=== PATIENT | female | born 1975 | race Caucasian/White ===

== ENCOUNTER 2017-09-25 13:53 | Inpatient (IN) | payer OTHER ==
[~2017-09-25] VITALS: Ht 162.6 cm; Wt 67.0 kg
[~2017-09-25 13:53] MED LIST: CYCL10TA PO; IBUP-232 PO; TRAM50TA PO
[2017-09-25 13:59] VITALS: PULSE 89; RESP 16; O2SAT 99
[2017-09-25] MEDS ORDERED: DIAZEPAM 5 MG TAB PO ONE (14:00)
[2017-09-25 14:16] VITALS: BP 150/73; PULSE 61; RESP 16; O2SAT 98
--- NOTE | 2017-09-25 14:31 | PD ---
HPI Chief Complaint: Numbness/Tingling Time Seen by Provider: 13:56 Travel History International Travel<30 days: No Contact w/Intl Traveler<30days: No Traveled to known affect area: No History of Present Illness HPI The patient is a 42-year-old female who presents to the emergency department for back pain. The patient states she has had ongoing back pain for one year which has progressed over the last week. The patient was seen at [facility] in [place] 1 week ago and was advised to follow-up with a neurosurgeon on an outpatient basis. However, the patient states she is unable to see a neurosurgeon and is progressing symptoms. The patient now states she had one episode of urinary incontinence at home. She also complains of pain that radiates into the right leg from the low back with right leg numbness and weakness. She does note diarrhea but denies any fecal incontinence. The patient states she had a rectal tone that was intact on her previous visit, earlier today, in [place]. The patient had a CT of the pelvis and lumbar spine at that time and was referred to [facility] for an MRI. The patient does note weakness and numbness in the right lower extremity, denies any significant weakness or numbness to left lower extremity. Symptoms are moderate. She denies any neck pain or back pain over the thoracic region. The patient does complain of low back pain located over the lower aspect of the lumbar region. She denies any history of IV drug abuse or accompanying fever, chills, or sweats. PFSH Past Medical History Anxiety: Yes Cardiovascular Problems: Yes (CARDIAC ARREST 17 MOS AND 18 YEARS OLD) Diminished Hearing: No Herniated Disk: Yes Respiratory: Yes (COPD) Immunizations Current: Yes Myocardial Infarction: Yes (17 MOS, 18 YRS OLD) Seizures: Yes (FEVER RELATED 13 YRS OLD) Tetanus Vaccination: < 5 Years Influenza Vaccination: No ?: Not Past Surgical History Abdominal Surgery: Yes (HERNIA) Appendectomy: Yes Cholecystectomy: Yes Hysterectomy: Yes Tonsillectomy: Yes Other Surgery: Yes (ACL; adnoids) Social History Alcohol Use: No Tobacco Use: Yes (1 ppd) Substance Use: Yes (marijuana ) Allergies-Medications (Allergen,Severity, Reaction): Coded Allergies: Penicillins (Verified Allergy, Severe, fever and convulsions, 09/25/17) amoxicillin (Verified Allergy, Severe, hives, 09/25/17) nitrofurantoin (Verified Allergy, Severe, hives, 09/25/17) cefaclor (Verified Allergy, Unknown, Anaphylaxis, 09/25/17) Reported Meds & Prescriptions Reported Meds & Active Scripts Active [place] (Hydrocodone-Acetaminophen) 5 Mg-325 Mg Tab 1 Tab PO Q6H PRN Medrol Dosepak (Methylprednisolone) 4 Mg Dspk 4 Mg PO DIRECTED Per Pharmacist direction Ibuprofen 600 Mg Tab 600 Mg PO Q6H PRN Review of Systems Except as stated in HPI: all other systems reviewed are Neg HENT: No: Headaches, Neck Pain Cardiovascular: No: Chest Pain or Discomfort Respiratory: No: Shortness of Breath Gastrointestinal: No: Nausea, Vomiting, Abdominal Pain Genitourinary: Positive: Incontinence Musculoskeletal: Positive: Weakness, Pain Neurologic: Positive: Incontinence, Sensory Disturbance Physical Exam Narrative GENERAL: Awake, alert, pleasant 42-year-old female who appears her stated age and is in no acute respiratory distress. SKIN: Focused skin assessment warm/dry. HEAD: Atraumatic. Normocephalic. EYES: No injection or drainage. ENT: No nasal bleeding or discharge. Mucous membranes pink and moist. NECK: Trachea midline. No JVD. CARDIOVASCULAR: Regular rate and rhythm. No murmur appreciated. RESPIRATORY: No accessory muscle use. Clear to auscultation. Breath sounds equal bilaterally. GASTROINTESTINAL: Abdomen soft, non-tender, nondistended. Back: No tenderness over the thoracic vertebrae. Mild tenderness of the lower mid lumbar and right sacroiliac. No obvious deformity. Rectal: Deferred, patient states she had positive rectal tone on previous rectal exam earlier today in [place]. MUSCULOSKELETAL: Strength of the great toes bilateral, left 5/5, right 4+/5. Plantarflexion on the left was 5/5, and the right 4+/5. Extension the knees bilaterally, left 5/5, right 4+/5. Flexion of the right hip 4/5 on the right, left 5/5. Positive dorsalis pedal pulses. NEUROLOGICAL: Awake and alert. No obvious cranial nerve deficits. Motor grossly within normal limits. Normal speech. Downward Babinski on the feet bilaterally. Knee DTRs are 2+ and symmetric. Ankle DTRs are 2+ and symmetric. Decreased sensation to soft touch the entire right lower extremity with compared to the left. PSYCHIATRIC: Appropriate mood and affect; insight and judgment normal. Data Data Last Documented VS Vital Signs Date Time Temp Pulse Resp B/P (MAP) Pulse Ox O2 Delivery O2 Flow Rate FiO2 09/25/17 16:46 70 18 99 Room Air 09/25/17 16:46 94/67 (76) Orders Orders Mri L Spine W/O Contrast (09/25/17 ) Diazepam (Valium) (09/25/17 14:00) Dexamethasone Inj (Decadron Inj) (09/25/17 16:30) Morphine Inj (Morphine Inj) (09/25/17 17:00) Complete Blood Count With Diff (09/25/17 16:55) Comprehensive Metabolic Panel (09/25/17 16:55) Type And Screen (09/25/17 16:55) Act Partial Throm Time (Ptt) (09/25/17 16:55) Prothrombin Time / Inr (Pt) (09/25/17 16:55) Electrocardiogram (09/25/17 ) MDM Medical Decision Making Medical Screen Exam Complete: Yes Emergency Medical Condition: Yes Medical Record Reviewed: Yes Interpretation(s) Last Impressions Lumbar Spine MRI 09/25/17 0000 Signed Impressions: CONCLUSION: 1. Findings are stable compared to the prior CT from 1 week ago. There is a mo derate size central disc protrusion at L4-L5 with possible annular tear. The di sc herniation effaces the lateral recesses but results in no significant spinal canal stenosis. There is mild bilateral neural foraminal narrowing. 2. Degenerative disc disease at L5-S1 without any significant canal or neural foraminal stenosis. 3. Remaining levels demonstrate no significant abnormality. Differential Diagnosis Differential diagnosis includes cauda equina syndrome, herniated disc, spinal stenosis, neuropathy, UTI, malignancy, epidural abscess. Narrative Course Patient was administered Valium 5 mg orally for anxiety and claustrophobia. MRI of the lumbar spine without contrast was ordered. I did review the patient' s CT of the pelvis, lumbar spine, and laboratory evaluation that was performed in [place], [place]. MRI reveals a herniated disc, no evidence of cauda equina. However, the patient states her leg is weak and is giving out, she is falling. Therefore, call was placed the on-call neurosurgeon. However, Dr. Emmanuel's office states the patient was supposed to have an appointment with Dr. Parrish on the , therefore, recommended we call Dr. Parrish. Therefore, Dr. Parrish was paged at 4:37 PM. The patient states they did place a mandatory referral for her, however, she never heard from the neurosurgeon, therefore, did not see a neurosurgeon in the office. The patient was administered Decadron 4 mg intravenously. I discussed the patient with the OR nurses who will bring up the MRI in the OR and Dr. Parrish will get back to us in regards to plan of care. I discussed the patient with Dr. Tabor, the patient can be admitted for surgery , most likely next week as it is an unstable disc and the patient may need a fusion of the L4-L5 area. He also stated the patient did not want to be hospitalized she could go home and follow-up outpatient with pain management. I did have a discussion with the patient, she would prefer to be admitted for possible surgical management as she has weakness of the right leg, multiple falls, and had another episode of incontinence. Therefore, the on-call medical service was paged for admission. Physician Communication [facility] Diagnosis Primary Impression: Back pain with right-sided radiculopathy Additional Impressions: Intractable back pain Urinary incontinence Qualified Codes: R32 - Unspecified urinary incontinence Admitting Information Admitting Physician Requests: Admit Patient Instructions: General Instructions Med/Other Pt SpecificInfo: Prescription(s) given Scripts Hydrocodone-Acetaminophen ([place]) 5 Mg-325 Mg Tab 1 TAB PO Q6H Y for PAIN, #12 TAB 0 Refills Prov: Man Velez MD 09/25/17 Methylprednisolone Dosepak (Medrol Dosepak) 4 Mg Dspk 4 MG PO DIRECTED, #1 DSPK 0 Refills Per Pharmacist direction Prov: Man Velez MD 09/25/17 Condition: Stable Man Velez MD Sep 25, 2017 14:31
--- NOTE | 2017-09-25 16:12 | RADRPT ---
EXAM DATE: 09/25/2017 3:57 PM EDT AGE/SEX: 42 years / Female INDICATIONS: Pain. Urinary incontinence, right leg weakness possible cauda equina. CLINICAL DATA: This is the patient's initial encounter. Patient reports that signs and symptoms have been present for 1 week and indicates a pain score of 8/10. MEDICAL/SURGICAL HISTORY: . Hernia. Hysterectomy. Tonsillectomy. COMPARISON: [facility], CT LUMBAR SPINE W/O CONTRAST, 09/18/2017. . TECHNIQUE: Multiplanar, multisequence MRI of the lumbar spine was performed without contrast. Patie nt was scanned in a sitting position; neutral, flexion, and extension scans were performed in the sa gittal plane. FINDINGS: Examination quality mildly degraded by motion artifact. The most caudal-appearing lumbar vertebra is numbered as L5. VERTEBRAE: There is mild endplate edema at the posterior superior L5 endplate. Otherwise, bone marro w signal is within normal limits. Vertebral body height is maintained. There is no anterolisthesis or retrolisthesis. CONUS: Normal level and configuration. T12-L1: No disc herniation, canal stenosis, or neural foraminal stenosis. L1-L2: No disc herniation, canal stenosis, or neural foraminal stenosis. L2-L3: No disc herniation, canal stenosis, or neural foraminal stenosis. L3-L4: No disc herniation, canal stenosis, or neural foraminal stenosis. There is mild facet hypertr ophy. L4-L5: There is disc desiccation with moderate size central disc protrusion with high T2 signal in t he herniated disc. There is mild facet hypertrophy. The lateral recesses are effaced but no spinal ca nal stenosis is present. There is mild bilateral neural foraminal stenosis. L5-S1: Disc desiccation with decreased disc height and a diffuse disc bulge. There is mild facet hyp ertrophy. No spinal canal stenosis or neural foraminal stenosis is present. Other: The visualized surrounding structures demonstrate no acute abnormality. CONCLUSION: 1. Findings are stable compared to the prior CT from 1 week ago. There is a moderate size central di sc protrusion at L4-L5 with possible annular tear. The disc herniation effaces the lateral recesses b ut results in no significant spinal canal stenosis. There is mild bilateral neural foraminal narrowin g. 2. Degenerative disc disease at L5-S1 without any significant canal or neural foraminal stenosis. 3. Remaining levels demonstrate no significant abnormality. Electronically signed by: Zeferino Purdy MD 09/25/2017 4:10 PM EDT
[2017-09-25] MEDS ORDERED: DEXAMETHASONE SOD PHOS 4 MG/ML VIAL IV PUSH ONE (16:30)
[2017-09-25] MEDS ORDERED: NORC5TAB PO (16:40)
[2017-09-25] MEDS ORDERED: MEDR4PAK PO (16:40)
[2017-09-25 16:46] VITALS: BP 94/67; PULSE 70; RESP 18; O2SAT 99
[2017-09-25] MEDS ORDERED: MORPHINE SULFATE 4 MG/ML INJ IV PUSH ONE (17:00)
[2017-09-25 17:39] LABS: BASOPHIL # 0.1 TH/MM3 (0-0.2); BASOPHIL % 0.7 % (0.0-2.0); EOSINOPHIL # 0.1 TH/MM3 (0-0.4); EOSINOPHIL % 0.6 % (0.0-4.0); HEMATOCRIT 38.7 % (35.0-46.0); LYMPH % 46.6 % (9.0-44.0); LYMPHOCYTE # 4.1 TH/MM3 (1.0-4.8); MEAN CELL VOLUME 87.9 FL (80.0-100.0); MEAN CORPUSCULAR HEMOGLOBIN 29.6 PG (27.0-34.0); MEAN CORPUSCULAR HGB CONC 33.6 % (32.0-36.0); MEAN PLATELET VOLUME 8.4 FL (7.0-11.0); MONO % 6.5 % (0.0-8.0); MONOCYTE # 0.6 TH/MM3 (0-0.9); NEUT % 45.6 % (16.0-70.0); PLATELET COUNT 205 TH/MM3 (150-450); RED CELL DISTRIBUTION WIDTH 13.8 % (11.6-17.2); WHITE BLOOD COUNT 8.8 TH/MM3 (4.0-11.0)
[2017-09-25] MEDS ORDERED: BISACODYL 10 MG SUPP RECTAL PRN (17:45)
[2017-09-25] MEDS ORDERED: SODIUM CHLORIDE 0.9% FLUSH 10 ML FLUSH IV FLUSH PRN (17:45)
[2017-09-25] MEDS ORDERED: LACTULOSE SYRUP 20 GM/30 ML CUP PO PRN (17:45)
[2017-09-25] MEDS ORDERED: ONDANSETRON HCL 4 MG/2 ML VIAL IVP PRN (17:45)
[2017-09-25] MEDS ORDERED: NALOXONE HCL 0.4 MG/ML AMP IV PUSH PRN (17:45)
[2017-09-25] MEDS ORDERED: SENNOSIDES 8.6 MG TAB PO PRN (17:45)
[2017-09-25] MEDS ORDERED: MAGNESIUM HYDROXIDE SUSP 30 ML CUP PO PRN (17:45)
[2017-09-25 17:47] LABS: ALBUMIN 4.2 GM/DL (3.4-5.0); ALT (GPT) 12 U/L (10-53); AST (GOT) 16 U/L (15-37); BICARBONATE 23.3 MEQ/L (21.0-32.0); BLOOD UREA NITROGEN 15 MG/DL (7-18); CALCIUM 9.2 MG/DL (8.5-10.1); CHLORIDE 109 MEQ/L (98-107); CREATININE 0.72 MG/DL (0.50-1.00); GLOMERULAR FILTRATION RATE 90 ML/MIN (>89); GLUCOSE,RANDOM 88 MG/DL (74-106); SODIUM (NA) 142 MEQ/L (136-145)
[2017-09-25 17:50] LABS: ALKALINE PHOSPHATASE 115 U/L (45-117); TOTAL BILIRUBIN ADULT 0.7 MG/DL (0.2-1.0); TOTAL PROTEIN 7.6 GM/DL (6.4-8.2)
[2017-09-25 17:51] LABS: PROTHROMBIN TIME - PATIENT 10.4 SEC (9.8-11.6)
[2017-09-25 18:25] VITALS: BP 106/56; PULSE 52; RESP 18; O2SAT 97
--- NOTE | 2017-09-25 19:03 | HHI.HP ---
HPI Service [facility] Primary Care Physician No Primary Care Physician Admission Diagnosis herniated disc with bilateral radiculopathy, and incontinence Diagnoses: Travel History International Travel<30 Days: No Contact w/Intl Traveler <30 Da: No Traveled to Known Affected Are: No History of Present Illness 42--year-old female who presents with a two-week history of worsening sharp low back pain radiating to both legs, with associated right leg weakness, numbness, , difficulty walking. She also reports a one-week history of worsening urinary incontinence. Eyes any fevers, chills, chest pain, shortness of breath, nausea , vomiting. Review of Systems Except as stated in HPI: all other systems reviewed are Neg Past Family Social History Past Medical History no significant PMH Past Surgical History Hysterectomy Tonsillectomy Appendectomy Hernia repair as a child. Reported Medications Reported Meds & Active Scripts Active [place] (Hydrocodone-Acetaminophen) 5 Mg-325 Mg Tab 1 Tab PO Q6H PRN Medrol Dosepak (Methylprednisolone) 4 Mg Dspk 4 Mg PO DIRECTED Per Pharmacist direction Ibuprofen 600 Mg Tab 600 Mg PO Q6H PRN Allergies: Coded Allergies: Penicillins (Verified Allergy, Severe, fever and convulsions, 09/25/17) amoxicillin (Verified Allergy, Severe, hives, 09/25/17) nitrofurantoin (Verified Allergy, Severe, hives, 09/25/17) cefaclor (Verified Allergy, Unknown, Anaphylaxis, 09/25/17) Family History Mother's medical history is unknown. Father with heart disease. Social History Patient smokes one half pack per day for the past 25 years. Nondrinker. Smokes marijuana. Denies other illicit drugs. Physical Exam Vital Signs Vital Signs Date Time Temp Pulse Resp B/P (MAP) Pulse Ox O2 Delivery O2 Flow Rate FiO2 09/25/17 18:25 52 18 106/56 (73) 97 Room Air 09/25/17 18:25 52 18 106/56 (73) 97 09/25/17 16:46 70 18 99 Room Air 09/25/17 16:46 70 18 94/67 (76) 99 Room Air 09/25/17 14:16 61 16 150/73 (98) 98 Room Air 09/25/17 14:04 94 Room Air 09/25/17 13:59 89 16 99 Physical Exam GENERAL: This is a well-nourished, well-developed patient, in no apparent distress. Alert and oriented 3. SKIN: No rashes, ecchymoses or lesions. Cool and dry. HEAD: Atraumatic. Normocephalic. No temporal or scalp tenderness. EYES: Pupils equal round and reactive. Extraocular motions intact. No scleral icterus. No injection or drainage. ENT: Nose without bleeding, purulent drainage or septal hematoma. Throat without erythema, tonsillar hypertrophy or exudate. Uvula midline. Airway patent. NECK: Trachea midline. No JVD or lymphadenopathy. Supple, nontender, no meningeal signs. CARDIOVASCULAR: Regular rate and rhythm without murmurs, gallops, or rubs. RESPIRATORY: Clear to auscultation. Breath sounds equal bilaterally. No wheezes , rales, or rhonchi. GASTROINTESTINAL: Abdomen soft, non-tender, nondistended. No hepato-splenomegaly , or palpable masses. No guarding. MUSCULOSKELETAL: Extremities without clubbing, cyanosis, or edema. No joint tenderness, effusion, or edema noted. No calf tenderness. Negative Homans sign bilaterally. NEUROLOGICAL: Awake and alert. Cranial nerves II through XII intact. Motor and sensory grossly within normal limits. Strength 5 out of 5 bilateral upper extremities. Patient reports decreased sensation right lower extremity. 5 out of 5 strength left lower extremity. 4 out of 5 strength right lower extremity. Reflexes 2+ bilateral lower extremities. Normal speech. Laboratory Laboratory Tests Test 09/25/17 17:13 White Blood Count 8.8 Red Blood Count 4.40 Hemoglobin 13.0 Hematocrit 38.7 Mean Corpuscular Volume 87.9 Mean Corpuscular Hemoglobin 29.6 Mean Corpuscular Hemoglobin Concent 33.6 Red Cell Distribution Width 13.8 Platelet Count 205 Mean Platelet Volume 8.4 Neutrophils (%) (Auto) 45.6 Lymphocytes (%) (Auto) 46.6 Monocytes (%) (Auto) 6.5 Eosinophils (%) (Auto) 0.6 Basophils (%) (Auto) 0.7 Neutrophils # (Auto) 4.0 Lymphocytes # (Auto) 4.1 Monocytes # (Auto) 0.6 Eosinophils # (Auto) 0.1 Basophils # (Auto) 0.1 CBC Comment DIFF FINAL Differential Comment Prothrombin Time 10.4 Prothromb Time International Ratio 1.0 Activated Partial Thromboplast Time 27.5 Blood Urea Nitrogen 15 Creatinine 0.72 Random Glucose 88 Total Protein 7.6 Albumin 4.2 Calcium Level 9.2 Alkaline Phosphatase 115 Aspartate Amino Transf (AST/SGOT) 16 Alanine Aminotransferase (ALT/SGPT) 12 Total Bilirubin 0.7 Sodium Level 142 Potassium Level 3.6 Chloride Level 109 Carbon Dioxide Level 23.3 Anion Gap 10 Estimat Glomerular Filtration Rate 90 Result Diagram: 09/25/17 17109/25/17 171 Caprini VTE Risk Assessment Caprini VTE Risk Assessment: No/Low Risk (score <= 1) Caprini Risk Assessment Model Point Value = 1 Point Value = 2 Point Value = 3 Point Value = 5 Age 41-60 Minor surgery BMI > 25 kg/m2 Swollen legs Varicose veins or History of unexplained or recurrent spontaneous Oral contraceptives or hormone replacement Sepsis (< 1 month) Serious lung disease, including pneumonia (< 1 month) Abnormal pulmonary function Acute myocardial infarction Congestive heart failure (< 1 month) History of inflammatory bowel disease Medical patient at bed rest Age 61-74 Arthroscopic surgery Major open surgery (> 45 min) Laparoscopic surgery (> 45 min) Malignancy Confined to bed (> 72 hours) Immobilizing plaster cast Central venous access Age >= 75 History of VTE Family history of VTE Factor V Leiden Prothrombin [id number] Lupus anticoagulant Anticardiolipin antibodies Elevated serum homocysteine Heparin-induced thrombocytopenia Other congenital or acquired thrombophilia Stroke (< 1 month) Elective arthroplasty Hip, pelvis, or leg fracture Acute spinal cord injury (< 1 month) Prophylaxis Regimen Total Risk Factor Score Risk Level Prophylaxis Regimen 0-1 Low Early ambulation 2 Moderate Order ONE of the following: *Sequential Compression Device (SCD) *Heparin 5000 units SQ BID 3-4 Higher Order ONE of the following medications: *Heparin 5000 units SQ TID *Enoxaparin/Lovenox 40 mg SQ daily (WT < 150 kg, CrCl > 30 mL/min) *Enoxaparin/Lovenox 30 mg SQ daily (WT < 150 kg, CrCl > 10-29 mL/min) *Enoxaparin/Lovenox 30 mg SQ BID (WT < 150 kg, CrCl > 30 mL/min) AND/OR *Sequential Compression Device (SCD) 5 or more Highest Order ONE of the following medications: *Heparin 5000 units SQ TID (Preferred with Epidurals) *Enoxaparin/Lovenox 40 mg SQ daily (WT < 150 kg, CrCl > 30 mL/min) *Enoxaparin/Lovenox 30 mg SQ daily (WT < 150 kg, CrCl > 10-29 mL/min) *Enoxaparin/Lovenox 30 mg SQ BID (WT < 150 kg, CrCl > 30 mL/min) AND *Sequential Compression Device (SCD) Assessment and Plan Assessment and Plan //Severe low back pain. //Herniated disc on MRI as above. = Pain management. Consult neurosurgery. Appreciate assistance. //Urinary incontinence. = Kidney function normal. We will check bladder scan. Place [place] if over 250 mL. //Chronic marijuana use. Cessation counseling provided. Discussed Condition With Patient, nurse, ED physician. Physician Certification 2 Midnight Certification Type: Admission for Inpatient Services Order for Inpatient Services The services are ordered in accordance with Medicare regulations or non- Medicare payer requirements, as applicable. In the case of services not specified as inpatient-only, they are appropriately provided as inpatient services in accordance with the 2-midnight benchmark. Estimated LOS (days): 2 days is the estimated time the patient will need to remain in the hospital, assuming treatment plan goals are met and no additional complications. Post-Hospital Plan: Home Edgar Evans MD Sep 25, 2017 19:03
[2017-09-25 20:00] VITALS: BP 108/60; PULSE 52; RESP 18; TEMP 98.4; O2SAT 99
[2017-09-25] MEDS: MORPHINE SULFATE 4 MG/ML INJ IV PUSH PRN (23:02)
[2017-09-25] MEDS: SODIUM CHLORIDE 0.9% FLUSH 10 ML FLUSH IV FLUSH SCH (23:06)
[2017-09-26] VITALS: BP 95/53; PULSE 52; RESP 18; TEMP 96.9; O2SAT 98
[2017-09-26] MEDS: MORPHINE SULFATE 4 MG/ML INJ IV PUSH PRN ×5 (02:49→23:24)
[2017-09-26 04:00] VITALS: BP 130/53; PULSE 61; RESP 18; TEMP 97.6; O2SAT 97
[2017-09-26 07:31] LABS: AUTOMATED NEUTROPHIL # 4.8 TH/MM3 (1.8-7.7); BASOPHIL % 0.4 % (0.0-2.0); EOSINOPHIL % 0.2 % (0.0-4.0); HEMATOCRIT 40.9 % (35.0-46.0); HEMOGLOBIN 13.9 GM/DL (11.6-15.3); LYMPH % 27.3 % (9.0-44.0); LYMPHOCYTE # 1.9 TH/MM3 (1.0-4.8); MEAN CELL VOLUME 87.4 FL (80.0-100.0); MEAN CORPUSCULAR HEMOGLOBIN 29.7 PG (27.0-34.0); MEAN PLATELET VOLUME 8.8 FL (7.0-11.0); MONO % 4.9 % (0.0-8.0); MONOCYTE # 0.3 TH/MM3 (0-0.9); NEUT % 67.2 % (16.0-70.0); PLATELET COUNT 209 TH/MM3 (150-450); RED BLOOD COUNT 4.68 MIL/MM3 (4.00-5.30); RED CELL DISTRIBUTION WIDTH 13.5 % (11.6-17.2); WHITE BLOOD COUNT 7.1 TH/MM3 (4.0-11.0)
[2017-09-26 08:00] LABS: ALBUMIN 4.4 GM/DL (3.4-5.0); AST (GOT) 13 U/L (15-37); BICARBONATE 22.8 MEQ/L (21.0-32.0); BLOOD UREA NITROGEN 10 MG/DL (7-18); CALCIUM 9.6 MG/DL (8.5-10.1); CHLORIDE 105 MEQ/L (98-107); CREATININE 0.64 MG/DL (0.50-1.00); GLOMERULAR FILTRATION RATE 103 ML/MIN (>89); GLUCOSE,RANDOM 99 MG/DL (74-106); SODIUM (NA) 139 MEQ/L (136-145)
[2017-09-26 08:03] LABS: ALKALINE PHOSPHATASE 122 U/L (45-117); ALT (GPT) 15 U/L (10-53); TOTAL PROTEIN 8.2 GM/DL (6.4-8.2)
[2017-09-26 08:38] VITALS: BP 106/73; PULSE 56; RESP 20; TEMP 98.5; O2SAT 100
--- NOTE | 2017-09-26 10:07 | HHI.PR ---
Subjective Remarks Follow-up severe low back pain/herniated disc with radiculopathy September 26, 2017-patient seen and examined, plan of significant right lower extremity numbness without any weakness. Denies any current bowel dysfunction however states she does have urinary incontinence Objective Vitals Vital Signs Date Time Temp Pulse Resp B/P (MAP) Pulse Ox O2 Delivery O2 Flow Rate FiO2 09/26/17 08:38 98.5 56 20 106/73 (84) 100 09/26/17 04:00 97.6 61 18 130/53 (78) 97 09/26/17 00:00 96.9 52 18 95/53 (67) 98 09/25/17 20:00 98.4 52 18 108/60 (76) 99 09/25/17 18:25 52 18 106/56 (73) 97 Room Air 09/25/17 18:25 52 18 106/56 (73) 97 09/25/17 16:46 70 18 99 Room Air 09/25/17 16:46 70 18 94/67 (76) 99 Room Air 09/25/17 14:16 61 16 150/73 (98) 98 Room Air 09/25/17 14:04 94 Room Air 09/25/17 13:59 89 16 99 Result Diagram: 09/26/17 0656 09/26/17 0656 Imaging Last Impressions Lumbar Spine MRI 09/25/17 0000 Signed Impressions: CONCLUSION: 1. Findings are stable compared to the prior CT from 1 week ago. There is a mo derate size central disc protrusion at L4-L5 with possible annular tear. The di sc herniation effaces the lateral recesses but results in no significant spinal canal stenosis. There is mild bilateral neural foraminal narrowing. 2. Degenerative disc disease at L5-S1 without any significant canal or neural foraminal stenosis. 3. Remaining levels demonstrate no significant abnormality. Objective Remarks GENERAL: NAD SKIN: Warm and dry. HEAD: Normocephalic. EYES: No scleral icterus. No injection or drainage. NECK: Supple, trachea midline. No JVD or lymphadenopathy. CARDIOVASCULAR: Regular rate and rhythm without murmurs, gallops, or rubs. RESPIRATORY: Breath sounds equal bilaterally. No accessory muscle use. GASTROINTESTINAL: Abdomen soft, non-tender, nondistended. MUSCULOSKELETAL: No cyanosis, or edema. BACK: TTP without obvious deformity. No CVA tenderness. A/P Problem List: (1) Back pain with right-sided radiculopathy ICD Code: M54.10 - Radiculopathy, site unspecified Status: Acute (2) Tobacco abuse ICD Code: Z72.0 - Tobacco use Assessment and Plan 42-year-old female with Herniated disc with radiculopathy Back pain with right-sided radiculopathy Neurosurgery consultation pending Patient treated 1 with Decadron, will continue with Decadron 4 mg IV every 12 hours Start Neurontin, Flexeril and Pamelor PT to treat and eval Tobacco abuse Tobacco counseling cessation provided Start nicotine patch Chronic marijuana use Counseling cessation provided DVT prophylaxis: Heparin Des Keith MD Sep 26, 2017 10:07
[2017-09-26] MEDS: SODIUM CHLORIDE 0.9% FLUSH 10 ML FLUSH IV FLUSH SCH ×2 (11:17→20:43)
[2017-09-26] MEDS: NICOTINE 14 MG/24 HR PATCH T-DERMAL SCH (11:17)
[2017-09-26 12:32] VITALS: BP 147/77; PULSE 99; RESP 20; TEMP 97.1; O2SAT 99
[2017-09-26] MEDS: GABAPENTIN 100 MG CAP PO SCH ×2 (12:58→16:30)
[2017-09-26] MEDS: CYCLOBENZAPRINE HCL 10 MG TAB PO SCH ×2 (12:58→20:42)
[2017-09-26] MEDS: ONDANSETRON ODT 4 MG TAB PO PRN ×2 (13:25→21:14)
[2017-09-26 16:30] VITALS: BP 103/54; PULSE 57; RESP 20; TEMP 98.4; O2SAT 99
[2017-09-26 20:00] VITALS: BP 105/59; PULSE 64; RESP 18; TEMP 97.7; O2SAT 100
[2017-09-26] MEDS: diphenhydrAMINE HCL 25 MG CAP PO PRN (20:42)
[2017-09-26] MEDS: DEXAMETHASONE SOD PHOS 4 MG/ML VIAL IV PUSH SCH (20:43)
[2017-09-26] MEDS: NORTRIPTYLINE HCL 25 MG CAP PO SCH (20:43)
[2017-09-26] MEDS: REMOVE OLD PATCH T-DERMAL SCH (20:54)
--- NOTE | 2017-09-26 22:54 | PD.CONS ---
History of Present Illness Service Neurosurgery Consult Requested By Medicine service Reason for Consult Lumbar disc herniation, radiculopathy Primary Care Physician No Primary Care Physician Diagnoses: History of Present Illness 42-year-old female presents to the emergency room on 09/25/2017 after being seen the week prior in the emergency room in [place]. She has a history of chronic low back pain for many years. Increasing low back pain with radiation to the right and left lower extremity primarily posterior lateral over the past couple weeks. Now with 2 or 3 days of numbness over the right mata and calf. She noted a couple episodes of urinary incontinence over the past few days. No saddle anesthesia. No pain weakness or numbness in the upper extremities. No numbness or paresthesias over the chest or abdomen. No fevers, intermittent chills for the past week Review of Systems Constitutional: COMPLAINS OF: Fatigue, Chills, DENIES: Fever Respiratory: DENIES: Cough, Shortness of breath Cardiovascular: DENIES: Chest pain Gastrointestinal: DENIES: Abdominal pain, Diarrhea, Nausea Musculoskeletal: COMPLAINS OF: Muscle aches, Back pain, DENIES: Joint pain, Joint Swelling, Neck pain Hematologic/lymphatic: DENIES: Bruising Neurologic: COMPLAINS OF: Abnormal gait, DENIES: Headache Past Family Social History Allergies: Coded Allergies: Penicillins (Verified Allergy, Severe, fever and convulsions, 09/25/17) amoxicillin (Verified Allergy, Severe, hives, 09/25/17) nitrofurantoin (Verified Allergy, Severe, hives, 09/25/17) cefaclor (Verified Allergy, Unknown, Anaphylaxis, 09/25/17) Past Medical History No complaint of significant cardiac, pulmonary, gastrointestinal disease, diabetes, hypertension Past Surgical History Hysterectomy Appendectomy Tonsillectomy Hernia repair Reported Medications Reported Meds & Active Scripts Active [place] (Hydrocodone-Acetaminophen) 5 Mg-325 Mg Tab 1 Tab PO Q6H PRN Medrol Dosepak (Methylprednisolone) 4 Mg Dspk 4 Mg PO DIRECTED Per Pharmacist direction Ibuprofen 600 Mg Tab 600 Mg PO Q6H PRN Family History Father with cardiac disease Social History Smokes one half pack cigarettes a day Occasional marijuana No IV drug use Physical Exam Vital Signs Vital Signs Date Time Temp Pulse Resp B/P (MAP) Pulse Ox O2 Delivery O2 Flow Rate FiO2 09/26/17 20:00 97.7 64 18 105/59 (74) 100 09/26/17 16:30 98.4 57 20 103/54 (70) 99 09/26/17 12:32 97.1 99 20 147/77 (100) 99 09/26/17 08:38 98.5 56 20 106/73 (84) 100 09/26/17 04:00 97.6 61 18 130/53 (78) 97 09/26/17 00:00 96.9 52 18 95/53 (67) 98 Physical Exam GENERAL: This is a well-nourished, well-developed patient, moderately uncomfortable during the exam SKIN: No abrasions, contusion, rash noted. Skin warm and dry. HEAD: Atraumatic. Normocephalic. No temporal or scalp tenderness. EYES: Sclerae are clear and nonicteric ENT: No facial edema or ecchymosis. No periorbital edema. NECK: Trachea midline. No cervical spine tenderness. CARDIOVASCULAR: Pulse regular RESPIRATORY: Clear and regular GASTROINTESTINAL: Abdomen soft, non-tender, nondistended. MUSCULOSKELETAL: Extremities without cyanosis, or edema. No joint tenderness, or edema noted. No calf tenderness. Dorsalis pedis pulses 2+ bilateral No significant pain with bilateral hip range of motion. Mild to moderate lower lumbar tenderness. NEUROLOGICAL: Awake and alert Oriented X 3 Speech is clear Conversant and appropriate Follow simple commands well Answers questions appropriately Reasonable judgment and insight Recent and remote memory are intact No evidence of anxiety or depression Sensation is intact to light touch in the upper extremities. Significant decreased sensation to light touch primarily over the anterior lateral right lower extremity below the knee Strength normal major flexion and extension groups all extremities except for question of very mild weakness right tibialis anterior but complains of pain with testing Jenna's absent bilaterally No ankle clonus Plantar responses absent bilateral Fine motor movements intact upper extremities Laboratory Laboratory Tests Test 09/26/17 06:56 White Blood Count 7.1 Red Blood Count 4.68 Hemoglobin 13.9 Hematocrit 40.9 Mean Corpuscular Volume 87.4 Mean Corpuscular Hemoglobin 29.7 Mean Corpuscular Hemoglobin Concent 34.0 Red Cell Distribution Width 13.5 Platelet Count 209 Mean Platelet Volume 8.8 Neutrophils (%) (Auto) 67.2 Lymphocytes (%) (Auto) 27.3 Monocytes (%) (Auto) 4.9 Eosinophils (%) (Auto) 0.2 Basophils (%) (Auto) 0.4 Neutrophils # (Auto) 4.8 Lymphocytes # (Auto) 1.9 Monocytes # (Auto) 0.3 Eosinophils # (Auto) 0.0 Basophils # (Auto) 0.0 CBC Comment DIFF FINAL Differential Comment Blood Urea Nitrogen 10 Creatinine 0.64 Random Glucose 99 Total Protein 8.2 Albumin 4.4 Calcium Level 9.6 Alkaline Phosphatase 122 Aspartate Amino Transf (AST/SGOT) 13 Alanine Aminotransferase (ALT/SGPT) 15 Total Bilirubin 1.0 Sodium Level 139 Potassium Level 3.7 Chloride Level 105 Carbon Dioxide Level 22.8 Anion Gap 11 Estimat Glomerular Filtration Rate 103 Result Diagram: 09/26/17 0656 09/26/17 0656 Imaging 09/25/2017 MRI lumbar spine images reviewed. There is moderate L4-5 and L5-S1 disc disease with mostly mild to moderate disc and annular displacement, moderate left L4-5 lateral recess stenosis. No significant canal stenosis Lumbar Spine MRI 09/25/17 0000 Signed Impressions: CONCLUSION: 1. Findings are stable compared to the prior CT from 1 week ago. There is a mo derate size central disc protrusion at L4-L5 with possible annular tear. The di sc herniation effaces the lateral recesses but results in no significant spinal canal stenosis. There is mild bilateral neural foraminal narrowing. 2. Degenerative disc disease at L5-S1 without any significant canal or neural foraminal stenosis. 3. Remaining levels demonstrate no significant abnormality. Assessment and Plan Assessment and Plan Impression: 1. L4-5 and L5-S1 degenerative disc disease, annular tear, relatively mild disc displacement. 2. Bilateral lumbar radicular symptoms. Positive right distal lower extremity sensory deficit possible mild motor deficit, primarily L5 distribution. 3. Complaint of urinary incontinence. No significant lumbar stenosis to explain symptoms. Plan: Findings were discussed with the patient. Option of conservative treatment, interventional pain management, surgical intervention all fully discussed. She may require surgical intervention for definitive treatment. Due to the degree of disc degeneration, relatively tall disc space presence of significant chronic low back pain, may require surgical stabilization rather than limited decompression procedure. Due to complaints of bladder incontinence with lack of associated significant lumbar stenosis, will proceed with MRI cervical and thoracic spine to more fully rule out cord compression. Washington Parrish MD Sep 26, 2017 22:54
[2017-09-27 04:00] VITALS: BP 90/54; PULSE 67; RESP 18; TEMP 97.9; O2SAT 97
[2017-09-27] MEDS: CYCLOBENZAPRINE HCL 10 MG TAB PO SCH (05:38)
[2017-09-27 05:48] VITALS: BP 92/54
[2017-09-27 07:56] VITALS: BP 105/55; PULSE 16; RESP 16; TEMP 98.8; O2SAT 99
[2017-09-27] MEDS: MORPHINE SULFATE 4 MG/ML INJ IV PUSH PRN ×3 (08:03→20:18)
[2017-09-27] MEDS: DEXAMETHASONE SOD PHOS 4 MG/ML VIAL IV PUSH SCH ×2 (08:06→20:17)
[2017-09-27] MEDS: GABAPENTIN 100 MG CAP PO SCH ×3 (08:10→17:44)
[2017-09-27] MEDS: NICOTINE 14 MG/24 HR PATCH T-DERMAL SCH (08:12)
--- NOTE | 2017-09-27 09:39 | HHI.PR ---
Subjective Remarks Follow-up severe low back pain/herniated disc with radiculopathy September 26, 2017-patient seen and examined, plan of significant right lower extremity numbness without any weakness. Denies any current bowel dysfunction however states she does have urinary incontinence September 27, 2017-patient seen and examined, states she had a good night sleep. Still with right lower extremity numbness. Objective Vitals Vital Signs Date Time Temp Pulse Resp B/P (MAP) Pulse Ox O2 Delivery O2 Flow Rate FiO2 09/27/17 07:56 98.8 16 16 105/55 (72) 99 09/27/17 05:48 92/54 (67) 09/27/17 04:00 97.9 67 18 90/54 (66) 97 09/26/17 20:00 97.7 64 18 105/59 (74) 100 09/26/17 16:30 98.4 57 20 103/54 (70) 99 09/26/17 12:32 97.1 99 20 147/77 (100) 99 I/O 09/26/17 09/26/17 09/26/17 09/27/17 09/27/17 09/27/17 07:00 15:00 23:00 07:00 15:00 23:00 Intake Total 720 ml Balance 720 ml Intake Oral 720 ml Bladder Scan Volume Amount 14 ml # Voids 3 3 4 # Bowel Movements 0 Result Diagram: 09/26/17 0656 09/26/17 0656 Imaging Last Impressions Lumbar Spine MRI 09/25/17 0000 Signed Impressions: CONCLUSION: 1. Findings are stable compared to the prior CT from 1 week ago. There is a mo derate size central disc protrusion at L4-L5 with possible annular tear. The di sc herniation effaces the lateral recesses but results in no significant spinal canal stenosis. There is mild bilateral neural foraminal narrowing. 2. Degenerative disc disease at L5-S1 without any significant canal or neural foraminal stenosis. 3. Remaining levels demonstrate no significant abnormality. Objective Remarks GENERAL: NAD SKIN: Warm and dry. HEAD: Normocephalic. EYES: No scleral icterus. No injection or drainage. NECK: Supple, trachea midline. No JVD or lymphadenopathy. CARDIOVASCULAR: Regular rate and rhythm without murmurs, gallops, or rubs. RESPIRATORY: Breath sounds equal bilaterally. No accessory muscle use. GASTROINTESTINAL: Abdomen soft, non-tender, nondistended. MUSCULOSKELETAL: No cyanosis, or edema. BACK: TTP without obvious deformity. No CVA tenderness. A/P Problem List: (1) Back pain with right-sided radiculopathy ICD Code: M54.10 - Radiculopathy, site unspecified Status: Acute (2) Tobacco abuse ICD Code: Z72.0 - Tobacco use Assessment and Plan 42-year-old female with Herniated disc with radiculopathy Back pain with right-sided radiculopathy Neurosurgery consultation appreciated Plan for MRI L and C-spines today September 27, 2017, will give Valium 5 mg p.o. 1 secondary to claustrophobia Continue Decadron 4 mg IV every 12 hours Continue Neurontin, Flexeril and Pamelor Increase frequency of morphine to every 6 due to hypotension PT to treat and eval Tobacco abuse Tobacco counseling cessation provided Continue nicotine patch Chronic marijuana use Counseling cessation provided DVT prophylaxis: Heparin Des Keith MD Sep 27, 2017 09:38
[2017-09-27] MEDS ORDERED: DIAZEPAM 5 MG TAB PO ONE (09:45)
[2017-09-27 11:43] VITALS: BP 115/57; PULSE 69; RESP 18; TEMP 98.4; O2SAT 99
[2017-09-27 15:52] VITALS: BP 112/62; PULSE 73; RESP 18; TEMP 98.8; O2SAT 95
--- NOTE | 2017-09-27 18:06 | HHI.NSPN ---
(Corona Mendoza) History Interval History 09/26: 42-year-old female presents to the emergency room on 09/25/2017 after being seen the week prior in the emergency room in [place]. She has a history of chronic low back pain for many years. Increasing low back pain with radiation to the right and left lower extremity primarily posterior lateral over the past couple weeks. Now with 2 or 3 days of numbness over the right mata and calf. She noted a couple episodes of urinary incontinence over the past few days. No saddle anesthesia. No pain weakness or numbness in the upper extremities. No numbness or paresthesias over the chest or abdomen. No fevers, intermittent chills for the past week 09/27: Went to see patient this evening and she is in MRI. (Corona Mendoza) Exam Results 09/25/17 09/25/17 09/26/17 09/26/17 09/27/17 09/27/17 06:00 18:00 06:00 18:00 06:00 18:00 Intake Total 720 ml Balance 720 ml Intake Oral 720 ml Bladder Scan Volume Amount 14 ml # Voids 5 3 4 # Bowel Movements 0 Vital Signs Date Time Temp Pulse Resp B/P (MAP) Pulse Ox O2 Delivery O2 Flow Rate FiO2 09/27/17 15:52 98.8 73 18 112/62 (79) 95 09/27/17 11:43 98.4 69 18 115/57 (76) 99 09/27/17 07:56 98.8 16 16 105/55 (72) 99 09/27/17 05:48 92/54 (67) 09/27/17 04:00 97.9 67 18 90/54 (66) 97 09/26/17 20:00 97.7 64 18 105/59 (74) 100 09/26/17 16:30 98.4 57 20 103/54 (70) 99 09/26/17 12:32 97.1 99 20 147/77 (100) 99 09/26/17 08:38 98.5 56 20 106/73 (84) 100 09/26/17 04:00 97.6 61 18 130/53 (78) 97 09/26/17 00:00 96.9 52 18 95/53 (67) 98 09/25/17 20:00 98.4 52 18 108/60 (76) 99 09/25/17 18:25 52 18 106/56 (73) 97 Room Air 09/25/17 18:25 52 18 106/56 (73) 97 09/25/17 16:46 70 18 99 Room Air 09/25/17 16:46 70 18 94/67 (76) 99 Room Air 09/25/17 14:16 61 16 150/73 (98) 98 Room Air 09/25/17 14:04 94 Room Air 09/25/17 13:59 89 16 99 (Corona Mendoza) Lab, Micro, Other Results Recent Impressions Lumbar Spine MRI 09/25/17 0000 Signed Impressions: CONCLUSION: 1. Findings are stable compared to the prior CT from 1 week ago. There is a mo derate size central disc protrusion at L4-L5 with possible annular tear. The di sc herniation effaces the lateral recesses but results in no significant spinal canal stenosis. There is mild bilateral neural foraminal narrowing. 2. Degenerative disc disease at L5-S1 without any significant canal or neural foraminal stenosis. 3. Remaining levels demonstrate no significant abnormality. Laboratory Tests Test 09/25/17 17:13 09/26/17 06:56 White Blood Count 8.8 TH/MM3 7.1 TH/MM3 Red Blood Count 4.40 MIL/MM3 4.68 MIL/MM3 Hemoglobin 13.0 GM/DL 13.9 GM/DL Hematocrit 38.7 % 40.9 % Mean Corpuscular Volume 87.9 FL 87.4 FL Mean Corpuscular Hemoglobin 29.6 PG 29.7 PG Mean Corpuscular Hemoglobin Concent 33.6 % 34.0 % Red Cell Distribution Width 13.8 % 13.5 % Platelet Count 205 TH/MM3 209 TH/MM3 Mean Platelet Volume 8.4 FL 8.8 FL Neutrophils (%) (Auto) 45.6 % 67.2 % Lymphocytes (%) (Auto) 46.6 % 27.3 % Monocytes (%) (Auto) 6.5 % 4.9 % Eosinophils (%) (Auto) 0.6 % 0.2 % Basophils (%) (Auto) 0.7 % 0.4 % Neutrophils # (Auto) 4.0 TH/MM3 4.8 TH/MM3 Lymphocytes # (Auto) 4.1 TH/MM3 1.9 TH/MM3 Monocytes # (Auto) 0.6 TH/MM3 0.3 TH/MM3 Eosinophils # (Auto) 0.1 TH/MM3 0.0 TH/MM3 Basophils # (Auto) 0.1 TH/MM3 0.0 TH/MM3 CBC Comment DIFF FINAL DIFF FINAL Differential Comment Prothrombin Time 10.4 SEC Prothromb Time International Ratio 1.0 RATIO Activated Partial Thromboplast Time 27.5 SEC Blood Urea Nitrogen 15 MG/DL 10 MG/DL Creatinine 0.72 MG/DL 0.64 MG/DL Random Glucose 88 MG/DL 99 MG/DL Total Protein 7.6 GM/DL 8.2 GM/DL Albumin 4.2 GM/DL 4.4 GM/DL Calcium Level 9.2 MG/DL 9.6 MG/DL Alkaline Phosphatase 115 U/L 122 U/L Aspartate Amino Transf (AST/SGOT) 16 U/L 13 U/L Alanine Aminotransferase (ALT/SGPT) 12 U/L 15 U/L Total Bilirubin 0.7 MG/DL 1.0 MG/DL Sodium Level 142 MEQ/L 139 MEQ/L Potassium Level 3.6 MEQ/L 3.7 MEQ/L Chloride Level 109 MEQ/L 105 MEQ/L Carbon Dioxide Level 23.3 MEQ/L 22.8 MEQ/L Anion Gap 10 MEQ/L 11 MEQ/L Estimat Glomerular Filtration Rate 90 ML/MIN 103 ML/MIN (Corona Mendoza) Medical Decision Making Impression and Plan Impression: 1. L4-5 and L5-S1 degenerative disc disease, annular tear, relatively mild disc displacement. 2. Bilateral lumbar radicular symptoms. Positive right distal lower extremity sensory deficit possible mild motor deficit, primarily L5 distribution. 3. Complaint of urinary incontinence. No significant lumbar stenosis to explain symptoms. Patient in MRI when this practitioner went to see her. Past 24 hrs: Afebrile. Bradycardia yesterday afternoon. Hypotensive early this morning. No labs for today. MRI lumbar spine demonstrated moderate size L4-5 central disc protrusion w/annular tear, effacing the lateral recesses w/o significant canal stenosis; L5-S1 DDD w/o significant canal or neural foraminal stenosis; remaining levels w/o significant abnormality. Plan: Primary management per Hospitalist. Neuro checks. Mobilise patient w/assistance. Physical & Occupational Therapy eval & tx. MRI cervical & thoracic spines w/o contrast. Plan to take patient to the OR on Sunday. NPO at midnight on . (Corona Mendoza) Attending Statement The exam, history, and the medical decision-making described in the above note were completed with the assistance of the mid-level provider. I reviewed and agree with the findings presented. I attest that I had a [id number] encounter with the patient on the same day, and personally performed and documented my assessment and findings in the medical record. Patient with persistent severe low back pain with radiation to the right greater than left primarily posterior lower extremity, significant persistent sensory loss primarily right anterior thigh. With additional pain medication patient able to perform lower extremity motor testing somewhat better, has at least moderate weakness right tibialis anterior and peroneus longus and brevis. Findings are consistent with right greater than left lumbar radiculopathy with right L4 sensory and L5 motor deficit. Treatment options again discussed with the patient and family. She has been through extensive conservative treatment. She wishes to proceed with surgical intervention. Surgical options of decompression with or without fusion discussed. Pros and cons of each extensively discussed. She wishes to proceed with L4-5 L5-S1 semi-laminectomy, discectomy, interbody fusion with posterior instrumentation. She understands risk of adjacent level degeneration which could result in additional surgical procedures in the future. Anticipated recovery time discussed. She understands that there is no guarantee regarding the results of the procedure. Surgery will tentatively be scheduled for 10/01/2017. (Washington Parrish MD) Corona Mendoza Sep 27, 2017 18:06 Washington Parrish MD Oct 01, 2017 23:49
[2017-09-27 20:00] VITALS: BP 107/65; PULSE 59; RESP 18; TEMP 98.7; O2SAT 98
[2017-09-27] MEDS: NORTRIPTYLINE HCL 25 MG CAP PO SCH (20:17)
[2017-09-27] MEDS: SODIUM CHLORIDE 0.9% FLUSH 10 ML FLUSH IV FLUSH SCH (20:17)
[2017-09-27] MEDS: REMOVE OLD PATCH T-DERMAL SCH (20:23)
[2017-09-27] MEDS: diphenhydrAMINE HCL 25 MG CAP PO PRN (22:25)
[2017-09-27] MEDS: CYCLOBENZAPRINE HCL 10 MG TAB PO PRN (22:25)
[2017-09-28] VITALS: BP 101/58; PULSE 50; RESP 18; TEMP 97.7; O2SAT 96
[2017-09-28 04:00] VITALS: BP 106/59; PULSE 58; RESP 18; TEMP 97.5; O2SAT 99
[2017-09-28] MEDS: MORPHINE SULFATE 4 MG/ML INJ IV PUSH PRN ×3 (05:32→17:31)
[2017-09-28 08:00] VITALS: BP 112/56; PULSE 66; RESP 16; TEMP 98.1; O2SAT 100
--- NOTE | 2017-09-28 09:09 | RADRPT ---
EXAM DATE: 09/27/2017 6:30 PM EDT AGE/SEX: 42 years / Female INDICATIONS: Myelopathy. CLINICAL DATA: This is the patient's initial encounter. Patient reports that signs and symptoms have been present for 3 days and indicates a pain score of 2/10. MEDICAL/SURGICAL HISTORY: . Hernia. Tonsillectomy. Hysterectomy. COMPARISON: None . TECHNIQUE: Multiplanar, multisequence MRI of the thoracic spine was performed. FINDINGS: Vertebrae: Normal vertebral body height. Homogeneous marrow signal. Alignment: Normal. Cord: Normal position and configuration. T1-T2: The thecal sac has a normal diameter. No evidence of disc bulge or protrusion. T2-T3: The thecal sac has a normal diameter. No evidence of disc bulge or protrusion. T3-T4: The thecal sac has a normal diameter. No evidence of disc bulge or protrusion. T4-T5: The thecal sac has a normal diameter. No evidence of disc bulge or protrusion. T5-T6: The thecal sac has a normal diameter. No evidence of disc bulge or protrusion. T6-T7: The thecal sac has a normal diameter. No evidence of disc bulge or protrusion. T7-T8: There is a minimal broad-based disc bulge that just touches the ventral portion of the cord w ithout flattening. No central canal stenosis.. T8-T9: The thecal sac has a normal diameter. No evidence of disc bulge or protrusion. T9-T10: The thecal sac has a normal diameter. No evidence of disc bulge or protrusion. T10-T11: The thecal sac has a normal diameter. No evidence of disc bulge or protrusion. T11-T12: The thecal sac has a normal diameter. No evidence of disc bulge or protrusion. T12-L1: The thecal sac has a normal diameter. No evidence of disc bulge or protrusion. CONCLUSION: 1. Mild degenerative disc disease at T7-T8 just touches the cord without flattening or central canal stenosis. Electronically signed by: Erwin Hong MD 09/27/2017 7:09 PM EDT
--- NOTE | 2017-09-28 09:09 | RADRPT ---
EXAM DATE: 09/27/2017 6:32 PM EDT AGE/SEX: 42 years / Female INDICATIONS: Myelopathy. CLINICAL DATA: This is the patient's initial encounter. Patient reports that signs and symptoms have been present for 3 days and indicates a pain score of 3/10. MEDICAL/SURGICAL HISTORY: . Hernia. Hysterectomy. Tonsillectomy. COMPARISON: . TECHNIQUE: Multiplanar, multisequence MRI examination of the cervical spine was performed without co ntrast. FINDINGS: Vertebrae: Normal vertebral body height. Homogeneous marrow signal. Alignment: Straightening of the cervical spine without kyphosis.. Cord: Normal configuration and signal. Post Fossa: The cerebellar tonsils are normal in position. C2-C3: Minimal broad-based bulge. No abutment of the cord or central canal stenosis. Neural foramina are patent bilaterally.. C3-C4: The thecal sac has a normal configuration. There is no evidence of disc herniation or spinal canal stenosis. The neural foramina are patent bilaterally. C4-C5: The thecal sac has a normal configuration. There is no evidence of disc herniation or spinal canal stenosis. The neural foramina are patent bilaterally. C5-C6: There is a mild broad-based disc bulge eccentric to the right. No narrowing of the lateral re cess or central canal. Neural foramina are patent bilaterally.. C6-C7: Minimal central bulge. No abutment of the cord or narrowing of the lateral recesses. Neural f oramina are patent.. C7-T1: No epidural impressions seen. CONCLUSION: 1. Mild degenerative changes. No neural impingement or central canal stenosis. Electronically signed by: Erwin Hong MD 09/27/2017 7:08 PM EDT
--- NOTE | 2017-09-28 09:21 | HHI.PR ---
Subjective Remarks Follow-up severe low back pain/herniated disc with radiculopathy September 26, 2017-patient seen and examined, plan of significant right lower extremity numbness without any weakness. Denies any current bowel dysfunction however states she does have urinary incontinence September 27, 2017-patient seen and examined, states she had a good night sleep. Still with right lower extremity numbness. September 28, 2017-patient seen and examined, she has no complaint and denies any right lower extremity pain. Patient is looking for surgery on October 01, 2017 Objective Vitals Vital Signs Date Time Temp Pulse Resp B/P (MAP) Pulse Ox O2 Delivery O2 Flow Rate FiO2 09/28/17 04:00 97.5 58 18 106/59 (75) 99 09/28/17 00:00 97.7 50 18 101/58 (72) 96 09/27/17 20:00 98.7 59 18 107/65 (79) 98 09/27/17 15:52 98.8 73 18 112/62 (79) 95 09/27/17 11:43 98.4 69 18 115/57 (76) 99 I/O 09/27/17 09/27/17 09/27/17 09/28/17 09/28/17 09/28/17 07:00 15:00 23:00 07:00 15:00 23:00 # Voids 4 4 Result Diagram: 09/26/17 0656 09/26/17 0656 Imaging Last Impressions Thoracic Spine MRI 09/27/17 0000 Signed Impressions: CONCLUSION: 1. Mild degenerative disc disease at T7-T8 just touches the cord without ronda ening or central canal stenosis. Cervical Spine MRI 09/27/17 0000 Signed Impressions: CONCLUSION: 1. Mild degenerative changes. No neural impingement or central canal stenos is. Lumbar Spine MRI 09/25/17 0000 Signed Impressions: CONCLUSION: 1. Findings are stable compared to the prior CT from 1 week ago. There is a mo derate size central disc protrusion at L4-L5 with possible annular tear. The di sc herniation effaces the lateral recesses but results in no significant spinal canal stenosis. There is mild bilateral neural foraminal narrowing. 2. Degenerative disc disease at L5-S1 without any significant canal or neural foraminal stenosis. 3. Remaining levels demonstrate no significant abnormality. Objective Remarks GENERAL: NAD SKIN: Warm and dry. HEAD: Normocephalic. EYES: No scleral icterus. No injection or drainage. NECK: Supple, trachea midline. No JVD or lymphadenopathy. CARDIOVASCULAR: Regular rate and rhythm without murmurs, gallops, or rubs. RESPIRATORY: Breath sounds equal bilaterally. No accessory muscle use. GASTROINTESTINAL: Abdomen soft, non-tender, nondistended. MUSCULOSKELETAL: No cyanosis, or edema. BACK: TTP without obvious deformity. No CVA tenderness. A/P Problem List: (1) Back pain with right-sided radiculopathy ICD Code: M54.10 - Radiculopathy, site unspecified Status: Acute (2) Tobacco abuse ICD Code: Z72.0 - Tobacco use Assessment and Plan 42-year-old female with Herniated disc with radiculopathy Back pain with right-sided radiculopathy Neurosurgery consultation appreciated and plan for surgery October 01, 2017 MRI L and C-spines without any evidence of central canal stenosis Continue Decadron 4 mg IV every 12 hours Continue Neurontin, Flexeril and Pamelor Continue morphine PT to treat and eval Tobacco abuse Tobacco counseling cessation provided Continue nicotine patch Chronic marijuana use Counseling cessation provided DVT prophylaxis: Heparin Des Keith MD Sep 28, 2017 09:21
[2017-09-28] MEDS: DEXAMETHASONE SOD PHOS 4 MG/ML VIAL IV PUSH SCH ×2 (09:41→21:33)
[2017-09-28] MEDS: GABAPENTIN 100 MG CAP PO SCH ×2 (09:42→17:31)
[2017-09-28] MEDS: NICOTINE 14 MG/24 HR PATCH T-DERMAL SCH (09:43)
[2017-09-28 12:00] VITALS: BP 115/66; PULSE 66; RESP 17; TEMP 98.4; O2SAT 98
--- NOTE | 2017-09-28 14:32 | HHI.NSPN ---
(Janneth Koo) Note Status Status: Progress Note (Janneth Koo) Interval History Interval History 42-year-old female with severe low back pain/herniated disc with radiculopathy, Dr. Parrish plans for surgery Sunday. No new neurological complaints. Remains quite painful, reports IV morphine 2 mg every 6 hours is not controlling her pain. (Janneth Koo) Labs, Micro, & Vital Signs Results Date Time Temp Pulse Resp B/P (MAP) Pulse Ox O2 Delivery O2 Flow Rate FiO2 09/28/17 08:00 98.1 66 16 112/56 (74) 100 09/28/17 04:00 97.5 58 18 106/59 (75) 99 09/28/17 00:00 97.7 50 18 101/58 (72) 96 09/27/17 20:00 98.7 59 18 107/65 (79) 98 09/27/17 15:52 98.8 73 18 112/62 (79) 95 Constitutional Vital Signs Date Time Temp Pulse Resp B/P (MAP) Pulse Ox O2 Delivery O2 Flow Rate FiO2 09/28/17 08:00 98.1 66 16 112/56 (74) 100 09/28/17 04:00 97.5 58 18 106/59 (75) 99 09/28/17 00:00 97.7 50 18 101/58 (72) 96 09/27/17 20:00 98.7 59 18 107/65 (79) 98 09/27/17 15:52 98.8 73 18 112/62 (79) 95 (Janneth Koo) Review of Systems Constitutional: DENIES: Fever, Chills Cardiovascular: DENIES: Chest pain Musculoskeletal: COMPLAINS OF: Back pain Neurologic: COMPLAINS OF: Paresthesias (Janneth Koo) Physical Exam GENERAL: resting in bed no acute distress SKIN: Skin warm and dry. HEAD: Atraumatic. Normocephalic. No temporal or scalp tenderness. EYES: Sclerae are clear and nonicteric ENT: No facial edema or ecchymosis. No periorbital edema. NECK: Trachea midline. NO JVD CARDIOVASCULAR: regular rate rhythm RESPIRATORY: Clear and regular GASTROINTESTINAL: Abdomen soft, non-tender, MUSCULOSKELETAL: No deformities. NEUROLOGICAL: Awake and alert Oriented X 3 Speech is clear Conversant and appropriate Follow simple commands well Answers questions appropriately Sensation is intact to light touch in the upper extremities. Significant decreased sensation to light touch primarily over the anterior lateral right lower extremity below the knee Strength normal major flexion and extension groups all extremities except for question of very mild weakness right tibialis anterior but complains of pain with testing No ankle clonus Plantar responses absent bilateral (Janneth Koo) The patient is alert, awake and oriented to time, place and person. Speech is fluent. Cranial nerve examination: pupils to be equal, round and reactive to light. Extra-ocular movements are intact. Facial motor and sensory function are normal and symmetrical. Gross hearing appears intact. Sternocleidomastoid and trapezius muscles are symmetrical. Other cranial nerves are intact. Neck is soft and supple with a good range of motion without pain. Significant decreased sensation to light touch primarily over the anterior lateral right lower extremity below the knee Strength normal major flexion and extension groups all extremities except for question of very mild weakness right tibialis anterior but complains of pain with testing Deep tendon reflexes are symmetrical in both upper and lower extremities. There is a bilateral plantar flexion response. Cerebellar examination is unremarkable, without deficits. Lungs clear Heart regular rhythm and rate Skin warm and dry (Binu Connolly MD) Medications Current Medications Current Medications Medications (Trade) Dose Ordered Sig/Vandana Route PRN Reason Start Time Stop Time Status Last Admin Dose Admin Sodium Chloride (NS Flush) 2 ml UNSCH PRN IV FLUSH FLUSH AFTER USING IV ACCESS 09/25/17 17:45 09/28/17 05:32 Sodium Chloride (NS Flush) 2 ml BID IV FLUSH 09/25/17 21:00 09/27/17 20:17 Naloxone HCl (Narcan Inj) 0.4 mg UNSCH PRN IV PUSH SEE LABEL COMMENTS 09/25/17 17:45 Magnesium Hydroxide (Milk Of Magnesia Liq) 30 ml Q12H PRN PO Mild constipation 09/25/17 17:45 Sennosides (Senokot) 17.2 mg Q12H PRN PO Moderate constipation 09/25/17 17:45 Bisacodyl (Dulcolax Supp) 10 mg DAILY PRN RECTAL SEVERE CONSITIPATION 09/25/17 17:45 Lactulose (Lactulose Liq) 30 ml DAILY PRN PO SEVERE CONSITIPATION 09/25/17 17:45 Ondansetron HCl (Zofran Odt) 4 mg Q6H PRN PO NAUSEA/VOMITING 09/25/17 18:00 09/26/17 21:14 Nicotine (Habitrol 14 Mg Patch.24 Hr) 1 patch DAILY T-DERMAL 09/26/17 10:00 09/28/17 09:43 Miscellaneous Information 1 HS T-DERMAL 09/26/17 21:00 09/27/17 20:23 Dexamethasone Sodium Phosphate (Decadron Inj) 4 mg Q12HR IV PUSH 09/26/17 21:00 09/28/17 09:41 Gabapentin (Neurontin) 200 mg TID PO 09/26/17 13:00 09/28/17 09:42 Nortriptyline HCl (Pamelor) 25 mg HS PO 09/26/17 21:00 09/27/17 20:17 Diphenhydramine HCl (Benadryl) 25 mg HS PRN PO INSOMNIA/MAY REPEAT X1 DOSE 09/26/17 21:00 09/27/17 22:25 Cyclobenzaprine HCl (Flexeril) 10 mg Q8HR PRN PO muscle spasm 09/27/17 09:45 09/27/17 22:25 Morphine Sulfate (Morphine Inj) 2 mg Q6H PRN IV PUSH pain>5 09/27/17 09:45 09/28/17 11:40 (Janneth Koo) Current Medications Current Medications Diazepam (Valium) 5 mg ONCE ONCE PO Last administered on 09/25/17at 14:21; Start 09/25/17 at 14:00; Stop 09/25/17 at 14:06; Status DC Dexamethasone Sodium Phosphate (Decadron Inj) 4 mg ONCE ONCE IV PUSH Last administered on 09/25/17at 16:46; Start 09/25/17 at 16:30; Stop 09/25/17 at 16:31 ; Status DC Morphine Sulfate (Morphine Inj) 2 mg ONCE ONCE IV PUSH Last administered on at 16:54; Start 09/25/17 at 17:00; Stop 09/25/17 at 17:01; Status DC Sodium Chloride (NS Flush) 2 ml UNSCH PRN IV FLUSH FLUSH AFTER USING IV ACCESS Last administered on 09/28/17 05:32; Start 09/25/17 at 17:45 Sodium Chloride (NS Flush) 2 ml BID IV FLUSH Last administered on 09/30/17 08: 47; Start 09/25/17 at 21:00 Ondansetron HCl (Zofran Inj) 4 mg Q6H PRN IVP NAUSEA OR VOMITING; Start at 17:45; Status UNV Naloxone HCl (Narcan Inj) 0.4 mg UNSCH PRN IV PUSH SEE LABEL COMMENTS; Start at 17:45 Magnesium Hydroxide (Milk Of Magnesia Liq) 30 ml Q12H PRN PO Mild constipation Last administered on 09/30/17 12:05; Start 09/25/17 at 17:45 Sennosides (Senokot) 17.2 mg Q12H PRN PO Moderate constipation; Start 09/25/17 at 17:45 Bisacodyl (Dulcolax Supp) 10 mg DAILY PRN RECTAL SEVERE CONSITIPATION; Start at 17:45 Lactulose (Lactulose Liq) 30 ml DAILY PRN PO SEVERE CONSITIPATION; Start at 17:45 Ondansetron HCl (Zofran Odt) 4 mg Q6H PRN PO NAUSEA/VOMITING Last administered on 09/29/17 08:05; Start 09/25/17 at 18:00 Morphine Sulfate (Morphine Inj) 2 mg Q3H PRN IV PUSH pain>5 Last administered on 09/27/17 08:03; Start 09/25/17 at 20:45; Stop 09/27/17 at 09:33; Status DC Nicotine (Habitrol 14 Mg Patch.24 Hr) 1 patch DAILY T-DERMAL Last administered on 09/30/17 08:46; Start 09/26/17 at 10:00 Miscellaneous Information 1 HS T-DERMAL Last administered on 09/29/17 20:36; Start 09/26/17 at 21:00 Dexamethasone Sodium Phosphate (Decadron Inj) 4 mg Q12HR IV PUSH Last administered on 09/30/17 08:47; Start 09/26/17 at 21:00 Gabapentin (Neurontin) 200 mg TID PO Last administered on 09/28/17at 09:42; Start 09/26/17 at 13:00; Stop 09/28/17 at 14:33; Status DC Nortriptyline HCl (Pamelor) 25 mg HS PO Last administered on 09/29/17at 20:36; Start 09/26/17 at 21:00 Cyclobenzaprine HCl (Flexeril) 10 mg Q8HR PO Last administered on 09/27/17at 05: 38; Start 09/26/17 at 14:00; Stop 09/27/17 at 09:33; Status DC Diphenhydramine HCl (Benadryl) 25 mg HS PRN PO INSOMNIA/MAY REPEAT X1 DOSE Last administered on 09/29/17at 21:45; Start 09/26/17 at 21:00 Cyclobenzaprine HCl (Flexeril) 10 mg Q8HR PRN PO muscle spasm Last administered on 09/29/17at 20:37; Start 09/27/17 at 09:45 Morphine Sulfate (Morphine Inj) 2 mg Q6H PRN IV PUSH breakthrough pain Last administered on 09/30/17at 10:49; Start 09/27/17 at 09:45 Diazepam (Valium) 5 mg ONCE ONCE PO Last administered on 09/27/17at 17:45; Start 09/27/17 at 09:45; Stop 09/27/17 at 09:57; Status DC Gabapentin (Neurontin) 300 mg TID PO Last administered on 09/30/17at 12:21; Start 09/28/17 at 18:00 Acetaminophen/ Hydrocodone Bitart ([place] 5-325 Mg) 1 tab Q4H PRN PO pain 1-5; Start 09/28/17 at 14:45 Acetaminophen/ Hydrocodone Bitart ([place] 5-325 Mg) 2 tab Q4H PRN PO pain 6-10 Last administered on 09/30/17at 12:05; Start 09/28/17 at 14:45 Chlorhexidine Gluconate (Hibiclens 4% Top Soln) 1 applic HS TOP ; Start at 21:00; Stop 10/02/17 at 21:01 (Binu Connolly MD) Medical Decision Making MDM Remarks 42-year-old female with lumbar spondylosis with radiculopathy (Janneth Koo) Plan Plan Remarks Dr. Parrish plans surgery Sunday, Continue supportive care and pain control, start patient on Lortab p.o. every 4 hours as needed, keep morphine IV for breakthrough pain We will also increase Neurontin to 300 mg 3 times daily for radicular pain N.p.o. at midnight Sunday for surgery Sunday (Janneth Koo) Attending Statement She will need to go to the operative room for a surgical decompression by Dr. Parrish next week..We have discussed the details including the [id number] details of the surgical procedure, its indications, alternatives, risks, and potential complications. Continue aggressive pulmonary toilette, nasotracheal suction, and breathing treatments with nebulizers. Daily PT and OT Renal. Continue to monitor closely urine output, BUN and creatinine Endocrine. Continue to Monitor serial Acu checks and SSI as needed in detail ID continue to monitor for signs of infection Continue Protonix for stress ulcer prophylaxis Continue Dillon hose and SCD's for DVT prophylaxis Further recommendations will be provided depending on the patient's clinical evaluation and follow up studies. The exam, history, and the medical decision-making described in the above note were completed with the assistance of the mid-level provider. I reviewed and agree with the findings presented. I attest that I had a [id number] encounter with the patient on the same day, and personally performed and documented my assessment and findings in the medical record. (Binu Connolly MD) Janneth Koo Sep 28, 2017 14:32 Binu Connolly MD Sep 30, 2017 15:59
[2017-09-28] MEDS ORDERED: ACETAMINOPHEN/HYDROcodone 325 MG/5 MG TAB PO PRN (14:45)
[2017-09-28 17:20] VITALS: BP 112/76; PULSE 69; RESP 18; TEMP 98.1; O2SAT 98
[2017-09-28 20:00] VITALS: BP 118/70; PULSE 73; RESP 18; TEMP 98; O2SAT 91
[2017-09-28] MEDS: NORTRIPTYLINE HCL 25 MG CAP PO SCH (21:33)
[2017-09-28] MEDS: SODIUM CHLORIDE 0.9% FLUSH 10 ML FLUSH IV FLUSH SCH (21:34)
[2017-09-28] MEDS: CYCLOBENZAPRINE HCL 10 MG TAB PO PRN (21:34)
[2017-09-28] MEDS: REMOVE OLD PATCH T-DERMAL SCH (21:40)
[2017-09-28] MEDS: ACETAMINOPHEN/HYDROcodone 325 MG/5 MG TAB PO PRN (22:56)
[2017-09-29] VITALS: BP 112/63; PULSE 57; RESP 18; TEMP 97.7; O2SAT 94
[2017-09-29] MEDS: MORPHINE SULFATE 4 MG/ML INJ IV PUSH PRN ×4 (00:36→20:35)
[2017-09-29] MEDS: diphenhydrAMINE HCL 25 MG CAP PO PRN ×2 (01:23→21:45)
[2017-09-29 04:00] VITALS: BP 109/62; PULSE 55; RESP 18; TEMP 97.3; O2SAT 97
[2017-09-29] MEDS: ACETAMINOPHEN/HYDROcodone 325 MG/5 MG TAB PO PRN ×5 (05:03→21:45)
[2017-09-29] MEDS: SODIUM CHLORIDE 0.9% FLUSH 10 ML FLUSH IV FLUSH SCH ×2 (07:50→20:36)
[2017-09-29] MEDS: GABAPENTIN 100 MG CAP PO SCH ×3 (07:51→17:14)
[2017-09-29] MEDS: DEXAMETHASONE SOD PHOS 4 MG/ML VIAL IV PUSH SCH ×2 (07:52→20:35)
[2017-09-29] MEDS: NICOTINE 14 MG/24 HR PATCH T-DERMAL SCH (07:55)
[2017-09-29] MEDS: ONDANSETRON ODT 4 MG TAB PO PRN (08:05)
[2017-09-29 08:19] VITALS: BP 126/56; PULSE 60; RESP 16; TEMP 98; O2SAT 100
[2017-09-29 12:00] VITALS: BP 114/75; PULSE 69; RESP 17; TEMP 98.4; O2SAT 100
--- NOTE | 2017-09-29 12:54 | HHI.PR ---
Subjective Remarks Follow-up severe low back pain/herniated disc with radiculopathy September 26, 2017-patient seen and examined, plan of significant right lower extremity numbness without any weakness. Denies any current bowel dysfunction however states she does have urinary incontinence September 27, 2017-patient seen and examined, states she had a good night sleep. Still with right lower extremity numbness. September 28, 2017-patient seen and examined, she has no complaint and denies any right lower extremity pain. Patient is looking for surgery on October 01, 2017 September 29, 2017-patient seen and examined, patient was attempted to walk for however complain of severe back pain radiating to the right leg Objective Vitals Vital Signs Date Time Temp Pulse Resp B/P (MAP) Pulse Ox O2 Delivery O2 Flow Rate FiO2 09/29/17 12:00 98.4 69 17 114/75 (88) 100 09/29/17 08:19 98.0 60 16 126/56 (79) 100 09/29/17 04:00 97.3 55 18 109/62 (78) 97 09/29/17 00:00 97.7 57 18 112/63 (79) 94 09/28/17 20:00 98.0 73 18 118/70 (86) 91 09/28/17 17:20 98.1 69 18 112/76 (88) 98 I/O 09/28/17 09/28/17 09/28/17 09/29/17 09/29/17 09/29/17 06:59 14:59 22:59 06:59 14:59 22:59 # Voids 4 4 Result Diagram: 09/26/17 0656 09/26/17 0656 Objective Remarks GENERAL: NAD SKIN: Warm and dry. HEAD: Normocephalic. EYES: No scleral icterus. No injection or drainage. NECK: Supple, trachea midline. No JVD or lymphadenopathy. CARDIOVASCULAR: Regular rate and rhythm without murmurs, gallops, or rubs. RESPIRATORY: Breath sounds equal bilaterally. No accessory muscle use. GASTROINTESTINAL: Abdomen soft, non-tender, nondistended. MUSCULOSKELETAL: No cyanosis, or edema. BACK: TTP without obvious deformity. No CVA tenderness. A/P Problem List: (1) Back pain with right-sided radiculopathy ICD Code: M54.10 - Radiculopathy, site unspecified Status: Acute (2) Tobacco abuse ICD Code: Z72.0 - Tobacco use Assessment and Plan 42-year-old female with Herniated disc with radiculopathy Back pain with right-sided radiculopathy Neurosurgery consultation appreciated and plan for surgery October 01, 2017 MRI L and C-spines without any evidence of central canal stenosis Continue Decadron 4 mg IV every 12 hours Continue Neurontin, Flexeril and Pamelor Continue pain management PT to treat and eval Tobacco abuse Tobacco counseling cessation provided Continue nicotine patch Chronic marijuana use Counseling cessation provided DVT prophylaxis: Heparin Des Keith MD Sep 29, 2017 12:54
[2017-09-29] MEDS: CYCLOBENZAPRINE HCL 10 MG TAB PO PRN ×2 (12:57→20:37)
[2017-09-29 16:00] VITALS: BP 111/59; PULSE 67; RESP 17; TEMP 98.5; O2SAT 97
[2017-09-29 19:47] VITALS: BP 131/87; PULSE 68; RESP 18; TEMP 98.7; O2SAT 98
[2017-09-29] MEDS: REMOVE OLD PATCH T-DERMAL SCH (20:36)
[2017-09-29] MEDS: NORTRIPTYLINE HCL 25 MG CAP PO SCH (20:36)
[2017-09-30 00:54] VITALS: BP 128/70; PULSE 50; RESP 18; TEMP 97.6; O2SAT 99
[2017-09-30] MEDS: ACETAMINOPHEN/HYDROcodone 325 MG/5 MG TAB PO PRN ×5 (02:34→20:54)
[2017-09-30 04:33] VITALS: BP 122/67; PULSE 58
[2017-09-30] MEDS: MORPHINE SULFATE 4 MG/ML INJ IV PUSH PRN ×3 (04:34→18:00)
[2017-09-30 08:00] VITALS: BP 130/78; PULSE 58; RESP 18; TEMP 98.1; O2SAT 99
[2017-09-30] MEDS: GABAPENTIN 100 MG CAP PO SCH ×3 (08:46→17:56)
[2017-09-30] MEDS: NICOTINE 14 MG/24 HR PATCH T-DERMAL SCH (08:46)
[2017-09-30] MEDS: SODIUM CHLORIDE 0.9% FLUSH 10 ML FLUSH IV FLUSH SCH ×2 (08:47→20:54)
[2017-09-30] MEDS: DEXAMETHASONE SOD PHOS 4 MG/ML VIAL IV PUSH SCH ×2 (08:47→20:54)
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
--- NOTE | 2017-09-30 11:59 | HHI.NSPN ---
(Janneth Koo) Note Status Status: Progress Note (Janneth Koo) Interval History Interval History 42-year-old female with severe low back pain/herniated disc with radiculopathy, Dr. Parrish plans for surgery Sunday. No new neurological complaints. Remains quite painful, reports IV morphine 2 mg every 6 hours is not controlling her pain. 09/30: constipated, eager for surgery tomorrow. c/o lumbar and radicular pain. (Janneth Koo) Labs, Micro, & Vital Signs Results Date Time Temp Pulse Resp B/P (MAP) Pulse Ox O2 Delivery O2 Flow Rate FiO2 09/30/17 08:00 98.1 58 18 130/78 (95) 99 09/30/17 04:33 58 122/67 (85) 09/30/17 00:54 97.6 50 18 128/70 (89) 99 09/29/17 19:47 98.7 68 18 131/87 (102) 98 09/29/17 16:00 98.5 67 17 111/59 (76) 97 09/29/17 12:00 98.4 69 17 114/75 (88) 100 Constitutional Vital Signs Date Time Temp Pulse Resp B/P (MAP) Pulse Ox O2 Delivery O2 Flow Rate FiO2 09/30/17 08:00 98.1 58 18 130/78 (95) 99 09/30/17 04:33 58 122/67 (85) 09/30/17 00:54 97.6 50 18 128/70 (89) 99 09/29/17 19:47 98.7 68 18 131/87 (102) 98 09/29/17 16:00 98.5 67 17 111/59 (76) 97 09/29/17 12:00 98.4 69 17 114/75 (88) 100 (Janneth Koo) Review of Systems Constitutional: DENIES: Fever Cardiovascular: DENIES: Chest pain Gastrointestinal: COMPLAINS OF: Constipation Musculoskeletal: COMPLAINS OF: Back pain Neurologic: COMPLAINS OF: Paresthesias (Janneth Koo) Physical Exam GENERAL: resting in bed no acute distress SKIN: Skin warm and dry. HEENT: Atraumatic. Normocephalic. Sclerae are clear and nonicteric No facial edema or ecchymosis. No periorbital edema. NECK: Trachea midline. NO JVD HEART: regular rate rhythm RESPIRATORY: Clear and regular MUSCULOSKELETAL: No deformities. NEUROLOGICAL: Awake and alert, speech fluent. Conversing well. Follow simple commands well. Moving major muscle groups extremities x 4. (Janneth Koo) GENERAL: resting in bed no acute distress SKIN: Skin warm and dry. HEENT: Atraumatic. Normocephalic. Sclerae are clear and nonicteric No facial edema or ecchymosis. No periorbital edema. NECK: Trachea midline. NO JVD HEART: regular rate rhythm RESPIRATORY: Clear and regular MUSCULOSKELETAL: No deformities. NEUROLOGICAL: Awake and alert, speech fluent. Conversing well. Follow simple commands well. Moving major muscle groups extremities x 4. (Binu Connolly MD) Medications Current Medications Current Medications Medications (Trade) Dose Ordered Sig/Vandana Route PRN Reason Start Time Stop Time Status Last Admin Dose Admin Sodium Chloride (NS Flush) 2 ml UNSCH PRN IV FLUSH FLUSH AFTER USING IV ACCESS 09/25/17 17:45 09/28/17 05:32 Sodium Chloride (NS Flush) 2 ml BID IV FLUSH 09/25/17 21:00 09/30/17 08:47 Naloxone HCl (Narcan Inj) 0.4 mg UNSCH PRN IV PUSH SEE LABEL COMMENTS 09/25/17 17:45 Magnesium Hydroxide (Milk Of Magnesia Liq) 30 ml Q12H PRN PO Mild constipation 09/25/17 17:45 Sennosides (Senokot) 17.2 mg Q12H PRN PO Moderate constipation 09/25/17 17:45 Bisacodyl (Dulcolax Supp) 10 mg DAILY PRN RECTAL SEVERE CONSITIPATION 09/25/17 17:45 Lactulose (Lactulose Liq) 30 ml DAILY PRN PO SEVERE CONSITIPATION 09/25/17 17:45 Ondansetron HCl (Zofran Odt) 4 mg Q6H PRN PO NAUSEA/VOMITING 09/25/17 18:00 09/29/17 08:05 Nicotine (Habitrol 14 Mg Patch.24 Hr) 1 patch DAILY T-DERMAL 09/26/17 10:00 09/30/17 08:46 Miscellaneous Information 1 HS T-DERMAL 09/26/17 21:00 09/29/17 20:36 Dexamethasone Sodium Phosphate (Decadron Inj) 4 mg Q12HR IV PUSH 09/26/17 21:00 09/30/17 08:47 Nortriptyline HCl (Pamelor) 25 mg HS PO 09/26/17 21:00 09/29/17 20:36 Diphenhydramine HCl (Benadryl) 25 mg HS PRN PO INSOMNIA/MAY REPEAT X1 DOSE 09/26/17 21:00 09/29/17 21:45 Cyclobenzaprine HCl (Flexeril) 10 mg Q8HR PRN PO muscle spasm 09/27/17 09:45 09/29/17 20:37 Morphine Sulfate (Morphine Inj) 2 mg Q6H PRN IV PUSH breakthrough pain 09/27/17 09:45 09/30/17 10:49 Gabapentin (Neurontin) 300 mg TID PO 09/28/17 18:00 09/30/17 08:46 Acetaminophen/ Hydrocodone Bitart ([place] 5-325 Mg) 1 tab Q4H PRN PO pain 1-5 09/28/17 14:45 Acetaminophen/ Hydrocodone Bitart ([place] 5-325 Mg) 2 tab Q4H PRN PO pain 6-10 09/28/17 14:45 09/30/17 06:46 Chlorhexidine Gluconate (Hibiclens 4% Top Soln) 1 applic HS TOP 09/30/17 21:00 10/02/17 21:01 UNV (Janneth Koo) Current Medications Current Medications Diazepam (Valium) 5 mg ONCE ONCE PO Last administered on 09/25/17at 14:21; Start 09/25/17 at 14:00; Stop 09/25/17 at 14:06; Status DC Dexamethasone Sodium Phosphate (Decadron Inj) 4 mg ONCE ONCE IV PUSH Last administered on 09/25/17at 16:46; Start 09/25/17 at 16:30; Stop 09/25/17 at 16:31 ; Status DC Morphine Sulfate (Morphine Inj) 2 mg ONCE ONCE IV PUSH Last administered on at 16:54; Start 09/25/17 at 17:00; Stop 09/25/17 at 17:01; Status DC Sodium Chloride (NS Flush) 2 ml UNSCH PRN IV FLUSH FLUSH AFTER USING IV ACCESS Last administered on 09/28/17at 05:32; Start 09/25/17 at 17:45 Sodium Chloride (NS Flush) 2 ml BID IV FLUSH Last administered on 10/01/17 09: 25; Start 09/25/17 at 21:00 Ondansetron HCl (Zofran Inj) 4 mg Q6H PRN IVP NAUSEA OR VOMITING; Start at 17:45; Status UNV Naloxone HCl (Narcan Inj) 0.4 mg UNSCH PRN IV PUSH SEE LABEL COMMENTS; Start at 17:45 Magnesium Hydroxide (Milk Of Magnesia Liq) 30 ml Q12H PRN PO Mild constipation Last administered on 09/30/17at 12:05; Start 09/25/17 at 17:45 Sennosides (Senokot) 17.2 mg Q12H PRN PO Moderate constipation; Start 09/25/17 at 17:45 Bisacodyl (Dulcolax Supp) 10 mg DAILY PRN RECTAL SEVERE CONSITIPATION; Start at 17:45 Lactulose (Lactulose Liq) 30 ml DAILY PRN PO SEVERE CONSITIPATION; Start at 17:45 Ondansetron HCl (Zofran Odt) 4 mg Q6H PRN PO NAUSEA/VOMITING Last administered on 10/02/17at 11:58; Start 09/25/17 at 18:00 Morphine Sulfate (Morphine Inj) 2 mg Q3H PRN IV PUSH pain>5 Last administered on 09/27/17at 08:03; Start 09/25/17 at 20:45; Stop 09/27/17 at 09:33; Status DC Nicotine (Habitrol 14 Mg Patch.24 Hr) 1 patch DAILY T-DERMAL Last administered on 10/02/17at 09:22; Start 09/26/17 at 10:00 Miscellaneous Information 1 HS T-DERMAL Last administered on 09/30/17at 21:04; Start 09/26/17 at 21:00 Dexamethasone Sodium Phosphate (Decadron Inj) 4 mg Q12HR IV PUSH Last administered on 10/01/17 09:24; Start 09/26/17 at 21:00; Stop 10/01/17 at 11:20 ; Status DC Gabapentin (Neurontin) 200 mg TID PO Last administered on 09/28/17 09:42; Start 09/26/17 at 13:00; Stop 09/28/17 at 14:33; Status DC Nortriptyline HCl (Pamelor) 25 mg HS PO Last administered on 09/30/17 20:53; Start 09/26/17 at 21:00 Cyclobenzaprine HCl (Flexeril) 10 mg Q8HR PO Last administered on 09/27/17 05: 38; Start 09/26/17 at 14:00; Stop 09/27/17 at 09:33; Status DC Diphenhydramine HCl (Benadryl) 25 mg HS PRN PO INSOMNIA/MAY REPEAT X1 DOSE Last administered on 09/29/17 21:45; Start 09/26/17 at 21:00 Cyclobenzaprine HCl (Flexeril) 10 mg Q8HR PRN PO muscle spasm Last administered on 09/30/17 20:54; Start 09/27/17 at 09:45 Morphine Sulfate (Morphine Inj) 2 mg Q6H PRN IV PUSH breakthrough pain Last administered on 10/01/17 06:45; Start 09/27/17 at 09:45; Stop 10/01/17 at 23:23 ; Status DC Diazepam (Valium) 5 mg ONCE ONCE PO Last administered on 09/27/17at 17:45; Start 09/27/17 at 09:45; Stop 09/27/17 at 09:57; Status DC Gabapentin (Neurontin) 300 mg TID PO Last administered on 10/02/17 12:41; Start 09/28/17 at 18:00 Acetaminophen/ Hydrocodone Bitart ([place] 5-325 Mg) 1 tab Q4H PRN PO pain 1-5; Start 09/28/17 at 14:45; Stop 10/01/17 at 23:26; Status DC Acetaminophen/ Hydrocodone Bitart ([place] 5-325 Mg) 2 tab Q4H PRN PO pain 6-10 Last administered on 10/01/17at 09:40; Start 09/28/17 at 14:45; Stop 10/01/17 at 23:26; Status DC Chlorhexidine Gluconate (Hibiclens 4% Top Soln) 1 applic HS TOP Last administered on 10/01/17at 00:15; Start 09/30/17 at 21:00; Stop 10/02/17 at 21:01 Dexamethasone Sodium Phosphate (Decadron Inj) 4 mg DAILY IV PUSH ; Start at 09:00; Stop 10/02/17 at 09:00; Status DC Gentamicin Sulfate (Gentamicin Inj) 240 mg STK-MED ONCE .ROUTE Last administered on 10/01/17at 15:51; Start 10/01/17 at 13:47; Stop 10/01/17 at 13:48 ; Status DC Lidocaine/ Epinephrine (Xylocaine-Epi 1%-1:100,000 Inj) 30 ml STK-MED ONCE .ROUTE ; Start 10/01/17 at 13:48; Stop 10/01/17 at 13:49; Status DC Thrombin (Thrombin Top Soln) 10,000 units STK-MED ONCE .ROUTE Last administered on 10/01/17at 15:51; Start 10/01/17 at 13:48; Stop 10/01/17 at 13:49 ; Status DC Bupivacaine HCl (Marcaine Pf 0.25% Inj) 30 ml STK-MED ONCE .ROUTE ; Start at 13:48; Stop 10/01/17 at 13:49; Status DC Gelatin (Gelfoam 100 Top) 1 foam STK-MED ONCE .ROUTE Last administered on at 15:51; Start 10/01/17 at 13:51; Stop 10/01/17 at 13:52; Status DC Bupivacaine Liposome (Exparel Pf 1.3% Inj) 20 ml STK-MED ONCE .ROUTE ; Start at 13:57; Stop 10/01/17 at 13:58; Status DC Clindamycin Phosphate (Cleocin Inj) 600 mg STK-MED ONCE .ROUTE Last administered on 10/01/17at 15:15; Start 10/01/17 at 14:03; Stop 10/01/17 at 14:04 ; Status DC Acetaminophen 200 ml @ As Directed STK-MED ONCE IV ; Start 10/01/17 at 14:10; Stop 10/01/17 at 14:11; Status DC Propofol 250 ml @ As Directed STK-MED ONCE .ROUTE ; Start 10/01/17 at 14:10; Stop 10/01/17 at 14:11; Status DC Heparin Sodium (Porcine) (Heparin Inj) 30,000 units STK-MED ONCE .ROUTE Last administered on 10/01/17at 15:51; Start 10/01/17 at 14:28; Stop 10/01/17 at 14:29 ; Status DC Fentanyl Citrate (fentaNYL INJ) 200 mcg STK-MED ONCE .ROUTE ; Start 10/01/17 at 15:21; Stop 10/01/17 at 15:22; Status DC Midazolam HCl (Versed Inj) 2 mg STK-MED ONCE .ROUTE ; Start 10/01/17 at 15:21; Stop 10/01/17 at 15:22; Status DC Bupivacaine Liposome (Exparel Pf 1.3% Inj) 20 ml ONCE ONCE INFIL ; Start at 16:57; Stop 10/01/17 at 16:59; Status DC Fentanyl Citrate (fentaNYL INJ) 100 mcg STK-MED ONCE .ROUTE ; Start 10/01/17 at 17:16; Stop 10/01/17 at 17:17; Status DC Propofol 100 ml @ As Directed STK-MED ONCE .ROUTE ; Start 10/01/17 at 19:06; Stop 10/01/17 at 19:07; Status DC Propofol 100 ml @ As Directed STK-MED ONCE .ROUTE ; Start 10/01/17 at 19:07; Stop 10/01/17 at 19:08; Status DC Fentanyl Citrate (fentaNYL INJ) 500 mcg STK-MED ONCE .ROUTE ; Start 10/01/17 at 20:05; Stop 10/01/17 at 20:06; Status DC Clindamycin Phosphate (Cleocin Inj) 600 mg STK-MED ONCE .ROUTE Last administered on 10/01/17at 21:31; Start 10/01/17 at 21:29; Stop 10/01/17 at 21:30 ; Status DC Potassium Chloride/Sodium Chloride 1,000 ml @ 42 mls/hr [id number] IV Last administered on 10/02/17at 09:25; Start 10/01/17 at 23:18 Ketorolac Tromethamine (Toradol Inj) 30 mg Q6H PRN IV PUSH Pain 6-10;if unable to take PO Last administered on 10/01/17at 23:33; Start 10/01/17 at 23:30; Stop 10/04/17 at 23:29 Acetaminophen/ Hydrocodone Bitart ([place] 5-325 Mg) 1 tab Q4H PRN PO PAIN SCALE 3 TO 5; Start 10/01/17 at 23:30 Naloxone HCl (Narcan Inj) 0.4 mg UNSCH PRN IV PUSH SEE LABEL COMMENTS; Start at 23:30 Naloxone HCl (Narcan Inj) 0.4 mg UNSCH PRN IV PUSH RESPIRATORY RATE LESS THAN 10; Start 10/01/17 at 23:30 Hydromorphone HCl (Dilaudid SINGLE WIRE SAW OPERATOR Inj) 6 mg UNSCH IV Last administered on at 16:35; Start 10/01/17 at 23:30 SINGLE WIRE SAW OPERATOR Dosage Infused (Pha) 1 Q8HR OTHER Last administered on 10/02/17at 14:00; Start 10/01/17 at 23:30 Miscellaneous Information ([facility] Nursing Information) ALL NURSING DEPARTME... UNSCH PRN .XX SEE LABEL COMMENTS; Start 10/01/17 at 23:00; Stop 10/02/17 at 22: 59 Morphine Sulfate (*morphine INJ PERIprocedure ONLY) 10 mg STK-MED ONCE .ROUTE Last administered on 10/01/17at 23:42; Start 10/01/17 at 23:42; Stop 10/01/17 at 23:43; Status DC Morphine Sulfate (*morphine INJ PERIprocedure ONLY) 10 mg STK-MED ONCE .ROUTE Last administered on 10/02/17at 00:10; Start 10/02/17 at 00:10; Stop 10/02/17 at 00:11; Status DC Lidocaine HCl (Xylocaine-Mpf 1% Inj) 5 ml STK-MED ONCE OTHER ; Start 10/01/17 at 12:00; Stop 10/02/17 at 12:10; Status DC Rocuronium [place] (Zemuron Inj) 50 mg STK-MED ONCE IV PUSH ; Start 10/01/17 at 12:00; Stop 10/02/17 at 12:10; Status DC Phenylephrine HCl (Neosynephrine/ NS 1000 Mcg/10ml Syr) 2,000 mcg STK-MED ONCE IV ; Start 10/01/17 at 12:00; Stop 10/02/17 at 12:10; Status DC Ephedrine Sulfate (ePHEDrine/NS 25 MG/5 ML SYR) 25 mg STK-MED ONCE IV ; Start at 12:00; Stop 10/02/17 at 12:10; Status DC Dexamethasone Sodium Phosphate (Decadron Inj) 8 mg STK-MED ONCE IV ; Start 10/01 at 12:00; Stop 10/02/17 at 12:10; Status DC Ondansetron HCl (Zofran Inj) 4 mg STK-MED ONCE IV PUSH ; Start 10/01/17 at 12:00 ; Stop 10/02/17 at 12:10; Status DC Propofol (Diprivan 200 Mg/20 ml Inj) 200 mg STK-MED ONCE IV ; Start 10/01/17 at 12:00; Stop 10/02/17 at 12:10; Status DC Ondansetron HCl (Zofran Odt) 4 mg STK-MED ONCE PO ; Start 10/01/17 at 12:00; Stop 10/02/17 at 12:10; Status DC Potassium Bicarbonate (Effer-K Eff) 50 meq ONCE ONCE PO Last administered on at 13:22; Start 10/02/17 at 13:00; Stop 10/02/17 at 13:08; Status DC (Binu Connolly MD) Medical Decision Making MDM Remarks 42-year-old female with lumbar spondylosis with radiculopathy (Janneth Koo) Plan Plan Remarks Dr. Parrish plans surgery Sunday, Continue supportive care and pain control, cont pain regimen, cont Neurontin to 300 mg 3 times daily for radicular pain N.p.o. at midnight Sunday for surgery Sunday (Janneth Koo) Attending Statement For surgery on Sunday by Dr Parrish .. Continue aggressive pulmonary toilette, nasotracheal suction, and breathing treatments with nebulizers. Nutrition. NPO Renal. monitor closely urine output, BUN and creatinine Endocrine. Monitor serial Acu checks and SSI as needed in detail ID monitor for signs of infection Protonix for stress ulcer prophylaxis Dillon hose and SCD's for DVT prophylaxis The exam, history, and the medical decision-making described in the above note were completed with the assistance of the mid-level provider. I reviewed and agree with the findings presented. I attest that I had a [id number] encounter with the patient on the same day, and personally performed and documented my assessment and findings in the medical record. (Binu Connolly MD) Janneth Koo Sep 30, 2017 11:58 Binu Connolly MD Oct 02, 2017 18:11
[2017-09-30 12:41] VITALS: BP 114/68; PULSE 67; RESP 18; TEMP 98.3; O2SAT 99
[2017-09-30 16:00] VITALS: BP 111/63; PULSE 67; RESP 18; TEMP 98.2; O2SAT 99
[2017-09-30] MEDS: NORTRIPTYLINE HCL 25 MG CAP PO SCH (20:53)
[2017-09-30] MEDS: CYCLOBENZAPRINE HCL 10 MG TAB PO PRN (20:54)
[2017-09-30 20:55] VITALS: BP 132/75; PULSE 85; RESP 18; TEMP 98; O2SAT 95
[2017-09-30] MEDS: REMOVE OLD PATCH T-DERMAL SCH (21:04)
[2017-10-01] MEDS: CHLORHEXIDINE GLUCONATE 4% SOLN 120 ML BTL TOP SCH ×2 (00:15→21:00)
[2017-10-01] MEDS: MORPHINE SULFATE 4 MG/ML INJ IV PUSH PRN ×2 (00:15→06:45)
[2017-10-01 00:45] VITALS: BP 122/64; PULSE 62; RESP 18; TEMP 97.9; O2SAT 97
[2017-10-01] MEDS: ACETAMINOPHEN/HYDROcodone 325 MG/5 MG TAB PO PRN ×3 (01:03→09:40)
[2017-10-01 04:36] VITALS: BP 117/63; PULSE 55; RESP 16; TEMP 97.9; O2SAT 98
[2017-10-01 08:00] VITALS: BP 117/72; PULSE 60; RESP 18; TEMP 98.2; O2SAT 100
[2017-10-01] MEDS: NICOTINE 14 MG/24 HR PATCH T-DERMAL SCH (09:24)
[2017-10-01] MEDS: GABAPENTIN 100 MG CAP PO SCH ×3 (09:24→18:00)
[2017-10-01] MEDS: DEXAMETHASONE SOD PHOS 4 MG/ML VIAL IV PUSH SCH (09:24)
[2017-10-01] MEDS: SODIUM CHLORIDE 0.9% FLUSH 10 ML FLUSH IV FLUSH SCH ×2 (09:25→21:00)
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
[2017-10-01] MEDS ORDERED: ROCURONIUM INJ 50 MG/5 ML SYRINGE IV PUSH ONE (12:00)
[2017-10-01] MEDS ORDERED: LIDOCAINE HCL 1% PF 5 ML SYRINGE OTHER ONE (12:00)
[2017-10-01] MEDS ORDERED: PROPOFOL 200 MG/20 ML AMP IV ONE (12:00)
[2017-10-01] MEDS ORDERED: PHENYLEPH/NS 1000 MCG/10 ML SYR IV ONE (12:00)
[2017-10-01] MEDS ORDERED: ONDANSETRON HCL 4 MG/2 ML VIAL IV PUSH ONE (12:00)
[2017-10-01] MEDS ORDERED: ePHEDrine/NS 25 MG/5 ML SYRINGE IV ONE (12:00)
[2017-10-01] MEDS ORDERED: DEXAMETHASONE SOD PHOS 4 MG/ML VIAL IV ONE (12:00)
[2017-10-01] MEDS ORDERED: ONDANSETRON ODT 4 MG TAB PO ONE (12:00)
[2017-10-01 12:15] VITALS: BP 119/80; PULSE 70; RESP 18; TEMP 98.2; O2SAT 99
[2017-10-01] MEDS ORDERED: GENTAMICIN SULFATE 80 MG/2 ML VIAL ONE (13:47)
[2017-10-01] MEDS ORDERED: BUPIVACAINE HCL PF 0.25% 30 ML VIAL ONE (13:48)
[2017-10-01] MEDS ORDERED: THROMBIN (TOPICAL) 5,000 UNIT VIAL ONE (13:48)
[2017-10-01] MEDS ORDERED: LIDOCAINE 1%/EPINEPHrine 1:100,000 SOLN 30 ML VIAL ONE (13:48)
[2017-10-01] MEDS ORDERED: GELFOAM SIZE 100 ONE (13:51)
[2017-10-01] MEDS ORDERED: BUPIVACAINE LIPOSOME PF 1.3% 20 ML VIAL ONE (13:57)
[2017-10-01] MEDS ORDERED: CLINDAMYCIN PHOS 600 MG/4 ML VIAL ONE ×2 (14:03→21:29)
[2017-10-01] MEDS ORDERED: ACETAMINOPHEN 1000 MG/100 ML 200 ML IV ONE (14:10)
[2017-10-01] MEDS ORDERED: PROPOFOL 500 MG/50 ML INJ 250 ML ONE (14:10)
[2017-10-01] MEDS ORDERED: HEPARIN SODIUM - SQ 10,000 UNITS/ML VIAL ONE (14:28)
[2017-10-01] MEDS ORDERED: MIDAZOLAM HCL 2 MG/2 ML VIAL ONE (15:21)
[2017-10-01] MEDS ORDERED: BUPIVACAINE LIPOSOME PF 1.3% 20 ML VIAL INFIL ONE (16:57)
[2017-10-01] MEDS ORDERED: PROPOFOL 500 MG/50 ML INJ 100 ML ONE ×2 (19:06→19:07)
[2017-10-01] MEDS ORDERED: fentaNYL CITRATE 250 MCG/5 ML AMP ONE (20:05)
[2017-10-01] MEDS: NORTRIPTYLINE HCL 25 MG CAP PO SCH (21:00)
[2017-10-01] MEDS: REMOVE OLD PATCH T-DERMAL SCH (21:00)
[2017-10-01] MEDS ORDERED: DO NOT ADM ANY ANTICOAGULANT DRUGS PRN (23:00)
[2017-10-01] MEDS: 1/2 NS + KCL 20 MEQ INJ 1,000 ML IV SCH (23:18)
[2017-10-01] MEDS: PCA - TOTAL MG DILAUDID DELIVERED PER SHIFT OTHER SCH (23:30)
[2017-10-01] MEDS ORDERED: NALOXONE HCL 0.4 MG/ML AMP IV PUSH PRN ×2 (23:30)
[2017-10-01] MEDS ORDERED: KETOROLAC TROMETHAMINE 30 MG/ML (IVP) VIAL IV PUSH PRN (23:30)
[2017-10-01] MEDS ORDERED: ACETAMINOPHEN/HYDROcodone 325 MG/5 MG TAB PO PRN (23:30)
[2017-10-01] MEDS ORDERED: *morphine SULFATE 10 MG/ML PERIprocedure ONLY ONE (23:42)
--- NOTE | 2017-10-01 23:46 | PD.OP ---
Operative Report Date of Surgery: Oct 01, 2017 Preoperative Diagnosis: (1) Herniated nucleus pulposus, lumbar (2) Spondylolisthesis of lumbar region (3) Lumbar radiculopathy 1. Right greater than left lumbar radiculopathy with right lower extremity sensory and motor deficit 2. L4-5 retrolisthesis and L5-S1 anterolisthesis 3. L3-4 greater than L4-5 disc and annular displacement with annular tear 4. Severe chronic progressive low back pain Postoperative Diagnosis: (1) Herniated nucleus pulposus, lumbar (2) Spondylolisthesis of lumbar region (3) Lumbar radiculopathy 1. Right greater than left lumbar radiculopathy with right lower extremity sensory and motor deficit 2. L4-5 retrolisthesis and L5-S1 anterolisthesis 3. L3-4 greater than L4-5 disc and annular displacement with annular tear 4. Severe chronic progressive low back pain Procedure: 1. Right L4-5 and L5-S1 decompressive semi-laminectomy, foraminotomy, discectomy with resection subannular herniated nucleus pulposus for decompression L4, L5 and S1 nerve roots 2. L4-5 and L5-S1 interbody fusion, PEEK cage, autograft and allograft bone 3. Bilateral L4 through S1 posterior instrumentation with pedicle screw fixation 4. Bilateral L4 through S1 posterior lateral fusion with autograft and allograft bone Anesthesia: General Surgeon: Washington Parrish [employer] Consultant(s): Tabitha Torres Operation and Findings: Indications: 42-year-old female with severe progressive intractable low back pain with radiation to the right greater than left lower extremity. Preoperative examination reveals significant sensory loss primarily right L4 distribution with approximately 3/5 right tibialis anterior and peroneus longus and brevis. Preoperative MRI reveals severe L4-5 and L5-S1 degenerative disc disease with annular tear and significant diffuse disc displacement at each level. Positive L4-5 retrolisthesis and L5-S1 anterior listhesis. Patient has failed extensive conservative treatment measures including physical therapy and medications. Findings: Lower lumbar hyperlordosis. Moderate L4-5 and severe L5-S1 disc degeneration. Significant L4-5 and L5-S1 right foraminal stenosis. Procedure in detail The patient was brought to the operating room and general endotracheal anesthesia induced without difficulty Lines were established per Anesthesia Sequential compression devices were in place The patient was positioned prone on the concentric Mars table with the side bolsters and all extremities appropriately padded Leads for intraoperative neuro monitoring were placed prior to positioning and a baseline study obtained Appropriate timeout procedure was performed with all personnel present and in agreement The lumbar region was shaved with clippers and sterilely prepped and draped 1% Xylocaine with epinephrine was used for local infiltration over the incision site which was made approximately 5 cm lateral to the midline at the bilateral L4-S1 level and carried sharply down to the fascia. The fascia was sharply incised and finger dissection was used to separate the normal intermuscular plane at the bilateral L4-S1 level, allowing direct palpation of the junction of the and pedicle and transverse process on each side. The entry point for the pedicle screws were determined by anatomic and radiographic landmarks. Using AP and lateral C-arm imaging, the Jamshidi needle was guided through the bilateral L4, L5 and S1 pedicle. The intraoperative C-arm imaging was used to verify appropriate Jamshidi needle placement. The wires were then placed through the Jamshidi needle cannulas, and the cannula was withdrawn. The wires were temporarily clipped away from the operative field. On the right side Jones elevator was used for subperiosteal elevation of paraspinous musculature and fascia away from the lamina and lower spinous processes of the L4 and L5 lamina. The deep self-retaining retractor was placed sequentially at the L4-5 and then L5-S1 level on the right side for the decompression and cage placement. The appropriate levels were verified with intraoperative C-arm The microscope was moved into place and used for the remainder of the procedure including the closure The TPS drill with a 5 mm bone bur followed by the Kerrison rongeur was used to remove the inferior two thirds of the lamina at the cephalad level of the decompression and the superior third of the lamina at the caudal level of the decompression. This was performed starting on the right side, and then working across midline towards the left. At the right L4-5 and L5-S1 levels, a portion of the medial facet was removed to allow sufficient room for placement of the cage without significant retraction of the thecal sac and exiting nerve root. There was noted to be significant foraminal disc displacement on the right side at the L4-5 and L5-S1 levels, and a foraminotomy was performed by removing the superior aspect of the superior right L5 and S1 facet to decompress the associated exiting L4 and L5 nerve roots. Hypertrophied ligamentum flavum was elevated away from the thecal sac and exiting nerve roots with the thin ligament dissector and resected with a 15 blade knife and Kerrison rongeur. The thecal sac and exiting nerve root were freed up from surrounding adhesions with the microdissectors and gently retracted medially revealing the underlying disc and annulus. There was moderate subannular disc herniation at each level. The annulus was incised sequentially at each level with the 11 blade knife and discectomy performed with pituitary biopsy forceps and straight and angled curettes The endplate scrapers were used to decorticate the endplates and any remaining debris was removed with the antibiotic irrigation and suction and pituitary biopsy forceps The appropriate size PEEK cage was packed with retained lamina cancellus autograft and a small amount of demineralized bone matrix The cage was placed at the L4-5 and then L5-S1 level with a good fit of the cage. An 11 mm lordotic cage was used at L4-5, with a 9 mm straight cage at L5- S1 The placement was checked under the microscope and with intraoperative C-arm and felt to be satisfactory. The thecal sac and nerve roots were probed with the long blunt nerve hook and felt to be well decompressed The cannulated 4.5 mm tap was then used to prepare the pedicle screw sites on each side, with the dilators used to protect the surrounding tissue. The appropriate length Spine Wave Sniper percutaneous cannulated pedicle screw attached to the MIS extenders were placed into the bilateral L4 and L5 and S1 pedicle using the existing guidewires which were then removed. Pedicle screw placement was checked with intraoperative C-arm imaging and felt to be satisfactory. EMG stimulation of the screws was performed and found to be satisfactory. The percutaneous rods were placed across the pedicle screws on each side. The locking caps were secured with the torque wrench and anti-torque device Compression and alignment were achieved as necessary with the rods and reducers. The entire construct was checked with intraoperative C-arm and felt to be satisfactory The region was well irrigated with antibiotic irrigation The posterior lateral structures at the bilateral L4 , 5 and S1 levels were decorticated with the TPS drill The shavings were left in place, to which was added the remaining autograft and allograft bone which was firmly packed in place for the posterior lateral fusion. The 7 mm flat fluted drain was left in place at the operative side and brought out through a incision at the upper lumbar region and secured to the skin with nylon suture and attached to sterile suction bleeding was carefully controlled with the bipolar forceps The closure was performed with 0 Vicryl interrupted for the deep and superficial fascia, with 3-0 Vicryl for the subcutaneous closure and 4-0 Vicryl running subcuticular closure. Dressings sterile Mastisol, Steri-Strips and Primapore was placed The patient was turned into supine position and taken to recovery room in stable condition All counts were correct at the end of the case Estimated blood loss was 150 cc No specimen was sent to pathology Neuro monitoring was stable during the procedure Washington Parrish MD Oct 01, 2017 23:46
[2017-10-02] VITALS (7 sets, daily range): BP systolic 97–183; BP diastolic 56–83; PULSE 69–84; RESP 16–20; TEMP 98–98.8; O2SAT 97–99
[2017-10-02] MEDS ORDERED: *morphine SULFATE 10 MG/ML PERIprocedure ONLY ONE (00:10)
[2017-10-02] MEDS: PCA - TOTAL MG DILAUDID DELIVERED PER SHIFT OTHER SCH ×3 (06:00→22:00)
--- NOTE | 2017-10-02 07:27 | RADRPT ---
EXAM DATE: 10/01/2017 10:51 PM EDT AGE/SEX: 42 years / Female INDICATIONS: L4-S1 fusion. CLINICAL DATA: This is the patient's initial encounter. Patient reports that signs and symptoms have been present for 1 day and indicates a pain score of Nonresponsive. MEDICAL/SURGICAL HISTORY: . Hernia. . Tonsillectomy. Hysterectomy COMPARISON: No prior exams available for comparison. FINDINGS: A single AP coned-down view of the lower lumbar spine was obtained intraoperatively using a matrix ca demario. This demonstrates the patient is status post fusion at what appears to be the L4-5 and L5-S1 le vels with bilateral pedicle screws and posterior fixation rods. There are metallic markers over the i nterspaces. The bony structures are not well delineated. CONCLUSION: Status post multilevel fusion. Electronically signed by: Caio Edwards MD 10/02/2017 7:26 AM EDT
[2017-10-02] MEDS: SODIUM CHLORIDE 0.9% FLUSH 10 ML FLUSH IV FLUSH SCH ×2 (09:00→20:06)
[2017-10-02] MEDS ORDERED: DEXAMETHASONE SOD PHOS 4 MG/ML VIAL IV PUSH SCH (09:00)
[2017-10-02] MEDS: NICOTINE 14 MG/24 HR PATCH T-DERMAL SCH (09:22)
[2017-10-02] MEDS: GABAPENTIN 100 MG CAP PO SCH ×3 (09:23→18:23)
[2017-10-02] MEDS: 1/2 NS + KCL 20 MEQ INJ 1,000 ML IV SCH (09:25)
[2017-10-02] MEDS: ONDANSETRON ODT 4 MG TAB PO PRN ×2 (11:58→23:19)
--- NOTE | 2017-10-02 11:59 | HHI.NSPN ---
(Corona Mendoza) History Chief Complaint: Doing great. Some low back pain. (Corona Mendoza) Interval History 09/26: 42-year-old female presents to the emergency room on 09/25/2017 after being seen the week prior in the emergency room in [place]. She has a history of chronic low back pain for many years. Increasing low back pain with radiation to the right and left lower extremity primarily posterior lateral over the past couple weeks. Now with 2 or 3 days of numbness over the right mata and calf. She noted a couple episodes of urinary incontinence over the past few days. No saddle anesthesia. No pain weakness or numbness in the upper extremities. No numbness or paresthesias over the chest or abdomen. No fevers, intermittent chills for the past week 09/27: Went to see patient this evening and she is in MRI. 09/29: 42-year-old female with severe low back pain/herniated disc with radiculopathy, Dr. Parrish plans for surgery Sunday. No new neurological complaints. Remains quite painful, reports IV morphine 2 mg every 6 hours is not controlling her pain. 09/30: constipated, eager for surgery tomorrow. c/o lumbar and radicular pain. 10/01: The patient went to the operating room for a right L4-5 and L5-S1 decompressive semi-laminectomy, foraminotomy and discectomy with resection of a subannular herniated nucleus pulposus for decompression of the L4, L5 and S1 nerve roots. She also had an L4-5 and L5-S1 interbody fusion with a PEEK cage and bilateral L4 through S1 posterior instrumentation with pedicle screw fixation and lateral fusion. Post-operatively she returned to the med/surg floor. 10/02: The patient is seen up and ambulating this morning using the front wheeled walker prior to being evaluated. Her gait was steady and she required no assistance. She was in the LSO brace. When seen she said that she felt great and that this is the first time that she has been pain free in years. She did endorse some pain to the low back when asked. She denied any pain, numbness, tingling or weakness to the extremities. She did have some nausea after breakfast that was relieved with ondansetron. She had no sensorimotor deficits to the extremities upon testing. She is asking to have the Marion catheter out and states that she is able to urinate. She is on the PRINTER'S ASSISTANT pump for pain control. (Corona Mendoza) System Review Comments Constitutional: DENIES: Fever Cardiovascular: DENIES: Chest pain, irregular heartbeat, palpitations Respiratory: DENIES: shortness of breath, wheezing, cough Gastrointestinal: COMPLAINS OF: Nausea; DENIES: Abdominal pain, vomiting Musculoskeletal: COMPLAINS OF: Low back pain; DENIES: Extremity weakness or pain Neurologic: DENIES: Headache, dizziness, numbness, tingling (Corona Mendoza) Exam Results 09/30/17 09/30/17 10/01/17 10/01/17 10/02/17 10/02/17 06:00 18:00 06:00 18:00 06:00 18:00 Intake Total 480 ml 4900 ml Output Total 3600 ml 30 ml Balance 480 ml 1300 ml -30 ml Intake Oral 480 ml 400 ml Other 4500 ml Output Urine Total 3450 ml Drainage Total 30 ml Estimated Blood Loss 150 ml # Voids 1 3 2 1 # Bowel Movements 2 0 Vital Signs Date Time Temp Pulse Resp B/P (MAP) Pulse Ox O2 Delivery O2 Flow Rate FiO2 10/02/17 08:00 98.0 82 18 103/56 (72) 99 10/02/17 06:00 98.5 72 16 99/57 (71) 99 10/02/17 06:00 14 10/02/17 01:15 98.0 69 16 100/60 (73) 97 10/02/17 00:30 79 18 102/62 (75) 100 Nasal Cannula 1.5 10/02/17 00:15 77 14 114/57 (76) 100 Nasal Cannula 1.5 10/02/17 00:00 93 14 114/64 (81) 100 Nasal Cannula 1.5 Arterial Line 10/02/17 00:00 20 10/01/17 23:45 89 14 116/74 (88) 100 Nasal Cannula 4 127/73 (91) 10/01/17 23:30 101 19 122/81 (95) 100 T-Piece 8 136/76 (96) 10/01/17 23:15 75 11 113/66 (82) 100 T-Piece 10 116/61 (79) 10/01/17 23:12 65 11 78/38 (51) 100 T-Piece 10 10/01/17 23:11 98.4 67 12 77/37 (50) 100 T-Piece 10 10/01/17 12:15 98.2 70 18 119/80 (93) 99 10/01/17 08:00 98.2 60 18 117/72 (87) 100 10/01/17 04:36 97.9 55 16 117/63 (81) 98 10/01/17 00:45 97.9 62 18 122/64 (83) 97 09/30/17 20:55 98.0 85 18 132/75 (94) 95 09/30/17 16:00 98.2 67 18 111/63 (79) 99 09/30/17 12:41 98.3 67 18 114/68 (83) 99 09/30/17 08:00 98.1 58 18 130/78 (95) 99 09/30/17 04:33 58 122/67 (85) 09/30/17 00:54 97.6 50 18 128/70 (89) 99 09/29/17 19:47 98.7 68 18 131/87 (102) 98 09/29/17 16:00 98.5 67 17 111/59 (76) 97 09/29/17 12:00 98.4 69 17 114/75 (88) 100 (Corona Mendoza) Physical Examination GENERAL: Awake & alert in bed visiting w/family. Affect normal. Readily interacts. No apparent distress. SKIN: Skin warm, dry & intact except for low back surgical incisions w/intact dressings. HEENT: Normocephalic, atraumatic. PERRLA 3 mm brisk, EOMI. MMM & pink, tongue midline to protrusion. NECK: No JVD, trachea midline. CARDIOVASCULAR: S1S2 w/RRR w/o M/G/R. No pedal edema. RESPIRATORY: CTAB w/o W/R/R, equal excursion, non-laboured, on RA. GASTROINTESTINAL: Abdomen soft, non-tender, positive bowel sounds. GENITOURINARY: Marion catheter to BSD w/clear yellow urine. MUSCULOSKELETAL: TIRAOD spontaneously & purposefully w/o difficulty. No evident clubbing or deformity. Extremities NTTP. Midline lumbar spine & low back surgical incisions TTP, SABAS drain to bulb suction w/serosanguinous drainage. NEUROLOGICAL: AAOx3. Speech clear & appropriate. Follows simple commands w/o difficulty. CN II through XII appear grossly intact. Sensation intact to light touch to all extremities. Motor strength is 5/5 to all major flexion & extension muscle groups of the extremities. Patient is ambulating without difficulty using a front wheeled walker. (Corona Mendoza) Lab, Micro, Other Results Recent Impressions Lumbar Spine X-Ray 10/01/17 0000 Signed Impressions: CONCLUSION: Status post multilevel fusion. (Corona Mendoza) Medical Decision Making Impression and Plan Impression: 1. L4-5 and L5-S1 degenerative disc disease, annular tear, relatively mild disc displacement. 2. Bilateral lumbar radicular symptoms. Positive right distal lower extremity sensory deficit possible mild motor deficit, primarily L5 distribution. 3. Complaint of urinary incontinence. No significant lumbar stenosis to explain symptoms. Postoperative Diagnosis: (1) Herniated nucleus pulposus, lumbar (2) Spondylolisthesis of lumbar region (3) Lumbar radiculopathy 1. Right greater than left lumbar radiculopathy with right lower extremity sensory and motor deficit 2. L4-5 retrolisthesis and L5-S1 anterolisthesis 3. L3-4 greater than L4-5 disc and annular displacement with annular tear 4. Severe chronic progressive low back pain Patient is doing well when seen. She states she feels great and is pain free for the first time in years. She does have some low back when asked. No sensorimotor deficits are noted upon evaluation. Ambulating w/o difficulty using a front wheeled walker. Past 24 hrs: Afebrile. Hypotensive late last night. SABAS drain with 30 mL output since surgery as of shift change this morning. No labs for today. POD #1 () s/p: 1. Right L4-5 and L5-S1 decompressive semi-laminectomy, foraminotomy, discectomy with resection subannular herniated nucleus pulposus for decompression L4, L5 and S1 nerve roots 2. L4-5 and L5-S1 interbody fusion, PEEK cage, autograft and allograft bone 3. Bilateral L4 through S1 posterior instrumentation with pedicle screw fixation 4. Bilateral L4 through S1 posterior lateral fusion with autograft and allograft bone Plan: Primary management per Hospitalist. Neuro checks. Mobilise patient w/assistance. LSO brace when OOB. Physical & Occupational Therapy eval & tx. D/c Marion catheter. (Corona Mendoza) Attending Statement The exam, history, and the medical decision-making described in the above note were completed with the assistance of the mid-level provider. I reviewed and agree with the findings presented. I attest that I had a [id number] encounter with the patient on the same day, and personally performed and documented my assessment and findings in the medical record. Patient with complaint of at least moderate low back pain but adequately controlled on PRINTER'S ASSISTANT pump. Ambulated relatively well with therapy today. General improvement in her overall severe chronic low back pain and lower extremity radicular symptoms with anticipated postoperative myofascial pain. Continue therapy Wean PRINTER'S ASSISTANT as tolerated SHU peterson a.m. (Washington Parrish MD) Corona Mendoza Oct 02, 2017 11:59 Washington Parrish MD Oct 02, 2017 20:16
[2017-10-02 12:19] LABS: AUTOMATED NEUTROPHIL # 10.2 TH/MM3 (1.8-7.7); BASOPHIL % 0.3 % (0.0-2.0); EOSINOPHIL % 0.1 % (0.0-4.0); HEMATOCRIT 36.3 % (35.0-46.0); HEMOGLOBIN 12.4 GM/DL (11.6-15.3); LYMPH % 22.4 % (9.0-44.0); LYMPHOCYTE # 3.3 TH/MM3 (1.0-4.8); MEAN CELL VOLUME 87.6 FL (80.0-100.0); MEAN CORPUSCULAR HGB CONC 34.3 % (32.0-36.0); MEAN PLATELET VOLUME 8.6 FL (7.0-11.0); MONO % 7.9 % (0.0-8.0); MONOCYTE # 1.2 TH/MM3 (0-0.9); NEUT % 69.3 % (16.0-70.0); PLATELET COUNT 216 TH/MM3 (150-450); RED BLOOD COUNT 4.14 MIL/MM3 (4.00-5.30); RED CELL DISTRIBUTION WIDTH 13.6 % (11.6-17.2); WHITE BLOOD COUNT 14.7 TH/MM3 (4.0-11.0)
[2017-10-02 12:32] LABS: BICARBONATE 26.6 MEQ/L (21.0-32.0); CALCIUM 8.5 MG/DL (8.5-10.1); CREATININE 0.81 MG/DL (0.50-1.00)
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
[2017-10-02] MEDS ORDERED: POTASSIUM BICARBONATE 25 MEQ EFFERVESCENT TAB PO ONE (13:00)
[2017-10-02] MEDS: HYDROmorphone HCL PCA 6 MG/30 ML IV SCH ×2 (16:35)
[2017-10-02] MEDS: NORTRIPTYLINE HCL 25 MG CAP PO SCH (20:06)
[2017-10-02] MEDS: CHLORHEXIDINE GLUCONATE 4% SOLN 120 ML BTL TOP SCH (20:07)
[2017-10-02] MEDS: REMOVE OLD PATCH T-DERMAL SCH (20:07)
[2017-10-02] MEDS: diphenhydrAMINE HCL 25 MG CAP PO PRN (21:11)
[2017-10-02] MEDS: CYCLOBENZAPRINE HCL 10 MG TAB PO PRN (21:11)
[2017-10-03] VITALS (7 sets, daily range): BP systolic 97–130; BP diastolic 54–71; PULSE 73–128; RESP 16–18; TEMP 98.3–99.9; O2SAT 96–100
[2017-10-03] MEDS: 1/2 NS + KCL 20 MEQ INJ 1,000 ML IV SCH ×2 (05:07→19:12)
[2017-10-03] MEDS: PCA - TOTAL MG DILAUDID DELIVERED PER SHIFT OTHER SCH ×2 (06:00→14:00)
[2017-10-03] MEDS: NICOTINE 14 MG/24 HR PATCH T-DERMAL SCH (07:55)
[2017-10-03] MEDS: GABAPENTIN 100 MG CAP PO SCH ×3 (07:55→18:30)
[2017-10-03] MEDS: SODIUM CHLORIDE 0.9% FLUSH 10 ML FLUSH IV FLUSH SCH ×2 (07:55→23:40)
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
[2017-10-03] MEDS ORDERED: WALKER WHEELS/F1 MIS (10:15)
[2017-10-03] MEDS: HYDROmorphone HCL PCA 6 MG/30 ML IV SCH (14:55)
[2017-10-03 15:54] LABS: BICARBONATE 28.8 MEQ/L (21.0-32.0); CALCIUM 8.7 MG/DL (8.5-10.1); CREATININE 0.76 MG/DL (0.50-1.00)
[2017-10-03] MEDS ORDERED: ACETAMINOPHEN 325 MG TAB PO PRN (19:00)
[2017-10-03] MEDS: REMOVE OLD PATCH T-DERMAL SCH (21:00)
--- NOTE | 2017-10-03 22:57 | HHI.NSPN ---
History Chief Complaint: Doing great. Some low back pain. Interval History States no recurrent or residual pain numbness weakness in the lower extremities. No problems with bowel or bladder function today. Exam Results Vital Signs Date Time Temp Pulse Resp B/P (MAP) Pulse Ox O2 Delivery O2 Flow Rate FiO2 10/03/17 16:00 99.7 110 17 106/59 (75) 100 10/02/17 00:30 Nasal Cannula 1.5 Intake and Output 10/03/17 10/03/17 10/04/17 08:00 16:00 00:00 Output Total 20 ml 10 ml Balance -20 ml -10 ml Physical Examination GENERAL: resting in bed no acute distress SKIN: There is some ecchymosis developing along the medial aspect of the left lumbar incision noted today. No drainage. No significant edema. NEUROLOGICAL: Awake and alert, speech fluent. Conversing well. Follow simple commands well. Moving major muscle groups extremities x 4. Lab, Micro, Other Results Laboratory Tests Test 10/03/17 14:50 Blood Urea Nitrogen 8 MG/DL Creatinine 0.76 MG/DL Random Glucose 92 MG/DL Calcium Level 8.7 MG/DL Sodium Level 137 MEQ/L Potassium Level 3.8 MEQ/L Chloride Level 100 MEQ/L Carbon Dioxide Level 28.8 MEQ/L Anion Gap 8 MEQ/L Estimat Glomerular Filtration Rate 84 ML/MIN Medical Decision Making Impression and Plan Impression: Doing well following L4-5, L5-S1 laminectomy discectomy interbody fusion. No residual lower extremity radicular symptoms or deficit. Back pain presently controlled with KNITTED CLOTH EXAMINER. Plan: Discussed with the patient Discontinue KNITTED CLOTH EXAMINER Continue oral Dilaudid for pain control Continue physical therapy, mobilize out of bed with LSO brace. Anticipate discharge home 10/04/2017 with home health care, walker with wheels. Need to recheck the operative site tomorrow to make sure that there is no problems with the wound healing, as there is noted to be some erythema along the medial left sided incision today. Discontinue drain Discontinue Toradol [place] Parrish MD Oct 03, 2017 22:57
[2017-10-03] MEDS ORDERED: HYDROmorphone HCL 2 MG TAB PO PRN (23:00)
[2017-10-03] MEDS: NORTRIPTYLINE HCL 25 MG CAP PO SCH (23:40)
[2017-10-04] MEDS: ONDANSETRON ODT 4 MG TAB PO PRN ×2 (00:03→08:22)
[2017-10-04 00:30] VITALS: BP 122/64; PULSE 80; RESP 20; TEMP 98; O2SAT 98
[2017-10-04] MEDS: HYDROmorphone HCL 4 MG TAB PO PRN ×4 (05:01→14:15)
[2017-10-04 05:30] VITALS: BP 96/54; PULSE 98; RESP 18; TEMP 99.1; O2SAT 96
[2017-10-04 08:00] VITALS: BP 103/53; PULSE 94; RESP 16; TEMP 99.8; O2SAT 97
[2017-10-04] MEDS: GABAPENTIN 100 MG CAP PO SCH ×2 (08:21→14:15)
[2017-10-04] MEDS: CYCLOBENZAPRINE HCL 10 MG TAB PO PRN (08:22)
[2017-10-04] MEDS: NICOTINE 14 MG/24 HR PATCH T-DERMAL SCH (08:22)
[2017-10-04] MEDS: SODIUM CHLORIDE 0.9% FLUSH 10 ML FLUSH IV FLUSH SCH (08:22)
--- NOTE | 2017-10-04 11:15 | HHI.NSPN ---
History Chief Complaint: Some soreness at surgical sites. Interval History 09/26: 42-year-old female presents to the emergency room on 09/25/2017 after being seen the week prior in the emergency room in [place]. She has a history of chronic low back pain for many years. Increasing low back pain with radiation to the right and left lower extremity primarily posterior lateral over the past couple weeks. Now with 2 or 3 days of numbness over the right mata and calf. She noted a couple episodes of urinary incontinence over the past few days. No saddle anesthesia. No pain weakness or numbness in the upper extremities. No numbness or paresthesias over the chest or abdomen. No fevers, intermittent chills for the past week 09/27: Went to see patient this evening and she is in MRI. 09/29: 42-year-old female with severe low back pain/herniated disc with radiculopathy, Dr. Parrish plans for surgery Sunday. No new neurological complaints. Remains quite painful, reports IV morphine 2 mg every 6 hours is not controlling her pain. 09/30: constipated, eager for surgery tomorrow. c/o lumbar and radicular pain. 10/01: The patient went to the operating room for a right L4-5 and L5-S1 decompressive semi-laminectomy, foraminotomy and discectomy with resection of a subannular herniated nucleus pulposus for decompression of the L4, L5 and S1 nerve roots. She also had an L4-5 and L5-S1 interbody fusion with a PEEK cage and bilateral L4 through S1 posterior instrumentation with pedicle screw fixation and lateral fusion. Post-operatively she returned to the med/surg floor. 10/02: The patient is seen up and ambulating this morning using the front wheeled walker prior to being evaluated. Her gait was steady and she required no assistance. She was in the LSO brace. When seen she said that she felt great and that this is the first time that she has been pain free in years. She did endorse some pain to the low back when asked. She denied any pain, numbness, tingling or weakness to the extremities. She did have some nausea after breakfast that was relieved with ondansetron. She had no sensorimotor deficits to the extremities upon testing. She is asking to have the Marion catheter out and states that she is able to urinate. She is on the GASKET INSPECTOR pump for pain control. 10/03: States no recurrent or residual pain numbness weakness in the lower extremities. No problems with bowel or bladder function today. 10/04: This morning the patient is seen sitting on the edge of the bed. She states she feel fine. She does say she has some pain at the surgical incisions, otherwise she has no back or extremity pain. She also denies any numbness, tingling or weakness to the extremities. She reports no difficulty with bowel or bladder control. She says she is ambulating independently with the front wheeled walker. There are no sensorimotor deficits noted to the lower extremities. She does have some ecchymosis with vesicles to the lower half & inferior of the left lateral surgical incision. Exam Results 10/02/17 10/02/17 10/03/17 10/03/17 10/04/17 10/04/17 06:00 18:00 06:00 18:00 06:00 18:00 Intake Total 4900 ml 1450 ml Output Total 3600 ml 1700 ml 740 ml 20 ml 15 ml Balance 1300 ml -1700 ml -740 ml -20 ml 1435 ml Intake Oral 400 ml 1450 ml Other 4500 ml Output Urine Total 3450 ml 1650 ml 700 ml Drainage Total 50 ml 40 ml 20 ml 15 ml Estimated Blood Loss 150 ml # Voids 2 8 # Bowel Movements 0 1 Vital Signs Date Time Temp Pulse Resp B/P (MAP) Pulse Ox O2 Delivery O2 Flow Rate FiO2 10/04/17 09:44 18 10/04/17 08:00 99.8 94 16 103/53 (70) 97 10/04/17 05:30 99.1 98 18 96/54 (68) 96 10/04/17 00:30 98.0 80 20 122/64 (83) 98 10/03/17 23:38 99.9 10/03/17 20:00 99.1 116 16 130/71 (90) 99 10/03/17 16:00 99.7 110 17 106/59 (75) 100 10/03/17 15:47 16 10/03/17 14:55 16 10/03/17 14:00 16 10/03/17 12:00 99.5 128 17 109/61 (77) 98 10/03/17 08:00 98.3 98 17 99/66 (77) 96 10/03/17 06:00 18 10/03/17 04:00 99.2 79 18 97/56 (70) 97 10/03/17 00:14 98.3 73 17 98/54 (69) 98 10/02/17 22:00 19 10/02/17 20:00 98.5 84 18 97/56 (70) 98 10/02/17 16:35 18 10/02/17 16:00 98.1 84 18 118/57 (77) 97 10/02/17 14:00 18 10/02/17 12:00 98.1 82 18 107/57 (74) 99 10/02/17 08:00 98.0 82 18 103/56 (72) 99 10/02/17 06:00 98.5 72 16 99/57 (71) 99 10/02/17 06:00 14 10/02/17 01:15 98.0 69 16 100/60 (73) 97 10/02/17 00:30 79 18 102/62 (75) 100 Nasal Cannula 1.5 10/02/17 00:15 77 14 114/57 (76) 100 Nasal Cannula 1.5 10/02/17 00:00 93 14 114/64 (81) 100 Nasal Cannula 1.5 Arterial Line 10/02/17 00:00 20 10/01/17 23:45 89 14 116/74 (88) 100 Nasal Cannula 4 127/73 (91) 10/01/17 23:30 101 19 122/81 (95) 100 T-Piece 8 136/76 (96) 10/01/17 23:15 75 11 113/66 (82) 100 T-Piece 10 116/61 (79) 10/01/17 23:12 65 11 78/38 (51) 100 T-Piece 10 10/01/17 23:11 98.4 67 12 77/37 (50) 100 T-Piece 10 10/01/17 12:15 98.2 70 18 119/80 (93) 99 Physical Examination GENERAL: Awake & alert, sitting on the edge of the bed. Affect normal. Readily interacts. No apparent distress. SKIN: SABAS drain site w/intact dressing, steri-strips intact w/dried bloody drainage to area, dried bloody drainage to dressing, no erythema, streaking or active drainage noted. Right lateral lumbar surgical incision well approximated w/steri-strips intact, dried blood under steri-strips & on dressing, no erythema , streaking or active drainage noted. Left lateral surgical incision well- approximated w/steri-strips intact, dried bloody drainage under steri-strips & on dressing, no erythema, streaking or active drainage noted, to the lower half of the incision & inferiorly there is ecchymosis w/vesicle formation. O/w skin warm, dry & intact. HEENT: Normocephalic, atraumatic. NECK: No JVD, trachea midline. MUSCULOSKELETAL: TIRADO spontaneously & purposefully w/o difficulty. No evident clubbing or deformity. Extremities NTTP. Midline lumbar spine NTTP but low back surgical incisions mildly TTP. NEUROLOGICAL: AAOx3. Speech clear & appropriate. Follows simple commands w/o difficulty. Sensation intact to light touch to all extremities. Motor strength is 5/5 to all major flexion & extension muscle groups of the extremities. SKIN: There is some ecchymosis developing along the medial aspect of the left lumbar incision noted today. No drainage. No significant edema. NEUROLOGICAL: Awake and alert, speech fluent. Conversing well. Follow simple commands well. Moving major muscle groups extremities x 4. Lab, Micro, Other Results Laboratory Tests Test 10/02/17 11:50 10/03/17 14:50 White Blood Count 14.7 TH/MM3 Red Blood Count 4.14 MIL/MM3 Hemoglobin 12.4 GM/DL Hematocrit 36.3 % Mean Corpuscular Volume 87.6 FL Mean Corpuscular Hemoglobin 30.0 PG Mean Corpuscular Hemoglobin Concent 34.3 % Red Cell Distribution Width 13.6 % Platelet Count 216 TH/MM3 Mean Platelet Volume 8.6 FL Neutrophils (%) (Auto) 69.3 % Lymphocytes (%) (Auto) 22.4 % Monocytes (%) (Auto) 7.9 % Eosinophils (%) (Auto) 0.1 % Basophils (%) (Auto) 0.3 % Neutrophils # (Auto) 10.2 TH/MM3 Lymphocytes # (Auto) 3.3 TH/MM3 Monocytes # (Auto) 1.2 TH/MM3 Eosinophils # (Auto) 0.0 TH/MM3 Basophils # (Auto) 0.0 TH/MM3 CBC Comment DIFF FINAL Differential Comment Blood Urea Nitrogen 15 MG/DL 8 MG/DL Creatinine 0.81 MG/DL 0.76 MG/DL Random Glucose 113 MG/DL 92 MG/DL Calcium Level 8.5 MG/DL 8.7 MG/DL Sodium Level 139 MEQ/L 137 MEQ/L Potassium Level 3.4 MEQ/L 3.8 MEQ/L Chloride Level 103 MEQ/L 100 MEQ/L Carbon Dioxide Level 26.6 MEQ/L 28.8 MEQ/L Anion Gap 9 MEQ/L 8 MEQ/L Estimat Glomerular Filtration Rate 78 ML/MIN 84 ML/MIN Medical Decision Making Impression and Plan Impression: 1. L4-5 and L5-S1 degenerative disc disease, annular tear, relatively mild disc displacement. 2. Bilateral lumbar radicular symptoms. Positive right distal lower extremity sensory deficit possible mild motor deficit, primarily L5 distribution. 3. Complaint of urinary incontinence. No significant lumbar stenosis to explain symptoms. Postoperative Diagnosis: (1) Herniated nucleus pulposus, lumbar (2) Spondylolisthesis of lumbar region (3) Lumbar radiculopathy 1. Right greater than left lumbar radiculopathy with right lower extremity sensory and motor deficit 2. L4-5 retrolisthesis and L5-S1 anterolisthesis 3. L3-4 greater than L4-5 disc and annular displacement with annular tear 4. Severe chronic progressive low back pain Patient continues to do well. W/some surgical site pain controlled w/ medication. No sensorimotor deficits are noted upon evaluation. No bowel or bladder difficulty reported. No difficulty ambulating independently using front wheeled walker reported. Past 24 hrs: 99.9 T max. Intermittent tachycardia yesterday. SBP intermittently into 90s. SABAS drain with 35 mL for the past 24 hrs as of shift change this morning. (D/c'd ) No labs for today. POD #3 () s/p: 1. Right L4-5 and L5-S1 decompressive semi-laminectomy, foraminotomy, discectomy with resection subannular herniated nucleus pulposus for decompression L4, L5 and S1 nerve roots 2. L4-5 and L5-S1 interbody fusion, PEEK cage, autograft and allograft bone 3. Bilateral L4 through S1 posterior instrumentation with pedicle screw fixation 4. Bilateral L4 through S1 posterior lateral fusion with autograft and allograft bone SP drain d/c'd . Plan: Primary management per Hospitalist. Neuro checks. Mobilise patient w/assistance. LSO brace when OOB. Physical & Occupational Therapy eval & tx. Okay to discharge home today w/follow up early next week for a wound check. Coorna Mendoza Oct 04, 2017 11:15
[2017-10-04 12:31] VITALS: BP 107/73; PULSE 119; RESP 20; TEMP 99.7; O2SAT 95
[2017-10-04] MEDS ORDERED: CYCL10TA PO (14:28)
[2017-10-04] MEDS ORDERED: DILA4TAB10 PO (14:28)
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
[2017-10-04] MEDS ORDERED: NICO14DI23 T-DERMAL (14:35)
[2017-10-04 17:47] VITALS: BP 115/70; PULSE 120; RESP 20; TEMP 99.7; O2SAT 96
== END 2017-10-04 18:02 | disposition home or self-care (01) | DRG 460 ==
LOC: NEPD 13:53 → NEDA 17:48 → N05B 19:09
PROVIDERS: ADMIT Hospitalist; ATTEND Hospitalist
PROC: 0SG30AJ Fusion of Lumbosacral Joint with Interbody Fusion Device, Posterior Approach, Anterior Column, Open Approach (ICD-10-PCS; 2017-10-01)
PROC: 0SB40ZZ Excision of Lumbosacral Disc, Open Approach (ICD-10-PCS; 2017-10-01)
PROC: 0SB20ZZ Excision of Lumbar Vertebral Disc, Open Approach (ICD-10-PCS; 2017-10-01)
PROC: 0SG00AJ Fusion of Lumbar Vertebral Joint with Interbody Fusion Device, Posterior Approach, Anterior Column, Open Approach (ICD-10-PCS; principal; 2017-10-01 14:28)
DX: M51.16 Intervertebral disc disorders with radiculopathy, lumbar region (principal); I95.9 Hypotension, unspecified; Z86.74 Personal history of sudden cardiac arrest; J44.9 Chronic obstructive pulmonary disease, unspecified; F40.240 Claustrophobia; R32 Unspecified urinary incontinence; F12.90 Cannabis use, unspecified, uncomplicated; F17.210 Nicotine dependence, cigarettes, uncomplicated; Z90.710 Acquired absence of both cervix and uterus; I25.2 Old myocardial infarction; R19.7 Diarrhea, unspecified; Z82.49 Family history of ischemic heart disease and other diseases of the circulatory system; G89.29 Other chronic pain; M51.17 Intervertebral disc disorders with radiculopathy, lumbosacral region; M43.16 Spondylolisthesis, lumbar region; R00.1 Bradycardia, unspecified; K59.00 Constipation, unspecified; Z91.410 Personal history of adult physical and sexual abuse; Z87.828 Personal history of other (healed) physical injury and trauma; E87.6 Hypokalemia
CPT/HCPCS: 72020; 72141; 72146; 72148; 76000; 80048; 80053; 80307; 81001; 85025; 85610; 85730; 86850; 86900; 86901; 94150; 96374; 96375; C1713; C9290; J0131; J1100; J1170; J1580; J1644; J1885; J2250; J2270; J2370; J2405; J3010; L0484